=== PATIENT | female | born 1990 | race Caucasian/White ===

== ENCOUNTER 2016-11-07 23:32 | Emergency (ER) | payer MEDICAID ==
--- NOTE | 2016-11-08 00:24 | EDM.PDOC ---
ED HPI GENERAL MEDICAL PROBLEM - General Chief Complaint: Respiratory Problem Stated Complaint: RIGHT AND LEFT SIDE RIB PAIN Time Seen by Provider: 11/08/16 00:13 Source of Information: Reports: Patient History Limitations: Reports: No Limitations - History of Present Illness INITIAL COMMENTS - FREE TEXT/NARRATIVE: This patient complains of a nonproductive cough for several days. She said she coughs so much that her ribs hurt. The cough is nonproductive. Her coughing is caused her to have a little bit of a scratchy throat. She thought she saw some white spots on the back of her throat. She denies a fever. Her was in the ER this morning with bronchitis symptoms also. 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: Musculoskeletal History: Reports: Back Pain, Chronic Endocrine/Metabolic History: Reports: Obesity/BMI 30+ - Infectious Disease History Infectious Disease History: Reports: None Social & Family History - Family History Cardiac: Reports: [place] - Tobacco Use Smoking Status *Q: Former Smoker Years of Tobacco use: 2 Used Tobacco, but Quit: Yes Month Tobacco Last Used: August Second Hand Smoke Exposure: No - Caffeine Use Caffeine Use: Reports: Soda, Tea - Alcohol Use Days Per Week of Alcohol Use: 0 - Recreational Drug Use Recreational Drug Use: No - Living Situation & Occupation Occupation: Unemployed ED ROS GENERAL - Review of Systems Review Of Systems: ROS reveals no pertinent complaints other than HPI. ED EXAM, GENERAL - Physical Exam Exam: See Below Exam Limited By: No Limitations General Appearance: Alert, No Apparent Distress, Obese Eye Exam: Bilateral Eye: Normal Inspection Throat/Mouth: Other (A few small follicles to the posterior pharyngeal wall. Tonsils appear normal) Head: Atraumatic Neck: Normal Inspection Respiratory/Chest: No Respiratory Distress, Lungs Clear Cardiovascular: Regular Rate, Rhythm Neurological: Alert Skin Exam: Warm, Dry Course - Vital Signs Last Recorded V/S: Last Vital Signs Temp 37.0 C 11/07/16 23:58 Pulse 87 11/07/16 23:58 Resp 18 11/07/16 23:58 BP 144/91 H 11/07/16 23:58 Pulse Ox 95 11/07/16 23:58 Departure - Departure Time of Disposition: 00:23 Disposition: Home, Self-Care 01 Condition: Fair Clinical Impression: Bronchitis - Discharge Information Referrals: Jelena Espinoza PA [Primary Care Provider] - Additional Instructions: Prescriptions: Guaifenesin/codeine elixir 120 mL. Take 10 mL every 4-6 hours as needed for cough. This medication can cause sedation and impair driving. See your Dr. if no better in 3 or 4 days. Typically with a viral upper respiratory infection your cough may actually last for weeks
[2016-11-08 01:42] VITALS: BP 144/91
== END 2016-11-08 00:38 | disposition home or self-care (01) ==
LOC: JP.ED 23:32
DX: J40 Bronchitis, not specified as acute or chronic (principal); K21.9 Gastro-esophageal reflux disease without esophagitis; E66.9 Obesity, unspecified; Z87.891 Personal history of nicotine dependence; Z79.899 Other long term (current) drug therapy
CPT/HCPCS: 99283

== ENCOUNTER 2017-03-13 13:41 | Emergency (ER) | payer MEDICAID ==
[2017-03-13 13:55] VITALS: BP 138/87
--- NOTE | 2017-03-13 14:08 | EDM.PDOC ---
ED HPI GENERAL MEDICAL PROBLEM - General Chief Complaint: ENT Problem Stated Complaint: R EAR BLOCKAGE Time Seen by Provider: 03/13/17 13:50 Source of Information: Reports: Patient History Limitations: Reports: No Limitations - History of Present Illness INITIAL COMMENTS - FREE TEXT/NARRATIVE: 26-year-old female that has had a pressure and hearing loss off and on all morning. No significant pain, no recent cold symptoms. Denies nausea or vomiting. No shortness of breath or cough. 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: Musculoskeletal History: Reports: Back Pain, Chronic Endocrine/Metabolic History: Reports: Obesity/BMI 30+ - Infectious Disease History Infectious Disease History: Reports: None Social & Family History - Family History Cardiac: Reports: [place] - Tobacco Use Smoking Status *Q: Never Smoker Years of Tobacco use: 2 Used Tobacco, but Quit: Yes Month Tobacco Last Used: August Second Hand Smoke Exposure: No - Caffeine Use Caffeine Use: Reports: Soda, Tea - Alcohol Use Days Per Week of Alcohol Use: 0 - Recreational Drug Use Recreational Drug Use: No - Living Situation & Occupation Occupation: Unemployed ED ROS ENT - Review of Systems Review Of Systems: See Below Constitutional: Denies: Fever, Chills Respiratory: Denies: Shortness of Breath, Cough Cardiovascular: Denies: Chest Pain GI/Abdominal: Reports: No Symptoms ED EXAM, ENT - Physical Exam Exam: See Below Exam Limited By: No Limitations General Appearance: Alert, No Apparent Distress Ears: Normal TMs Nose: Normal Inspection Mouth/Throat: Normal Inspection Respiratory/Chest: No Respiratory Distress, Lungs Clear Course - Vital Signs Last Recorded V/S: Last Vital Signs Temp 97.9 F 03/13/17 13:54 Pulse 92 03/13/17 13:54 Resp 14 03/13/17 13:54 BP 138/87 03/13/17 13:54 Pulse Ox 98 03/13/17 13:54 - Re-Assessments/Exams Free Text/Narrative Re-Assessment/Exam: 03/13/17 14:06 Patient has eustachian tube dysfunction. She'll be placed on 60 mg of prednisone daily for the next 2-5 days, and continues Afrin nasal spray on the right side. She'll recheck in 2-3 days if not improving satisfactorily. Departure - Departure Time of Disposition: 14:12 Disposition: Home, Self-Care 01 Condition: Good Clinical Impression: Eustachian tube dysfunction Qualifiers: Laterality: right Qualified Code(s): H69.81 - Other specified disorders of Eustachian tube, right ear - Discharge Information Instructions: Barotitis Media Referrals: Jelena Espinoza PA [Primary Care Provider] - Forms: ED Department Discharge Care Plan Goals: Take 6 pills of prednisone daily with food all at the same time, with your first meal for the next 2-5 days. You can also try Afrin or Babak-Synephrine nasal spray in the right side of your nose for the next few days. Recheck in 2- 3 days if not improving satisfactorily.
== END 2017-03-13 14:13 | disposition home or self-care (01) ==
LOC: JP.ED 13:41
DX: H69.81 Other specified disorders of Eustachian tube, right ear (principal); K21.9 Gastro-esophageal reflux disease without esophagitis
CPT/HCPCS: 99283

== ENCOUNTER 2017-04-19 10:00 | Emergency (ER) | payer MEDICAID ==
[2017-04-19 10:15] VITALS: BP 116/80
--- NOTE | 2017-04-19 10:34 | EDM.PDOC ---
ED HPI GENERAL MEDICAL PROBLEM - General Chief Complaint: Respiratory Problem Stated Complaint: SOB; COUGH Time Seen by Provider: 04/19/17 10:10 Source of Information: Reports: Patient History Limitations: Reports: No Limitations - History of Present Illness INITIAL COMMENTS - FREE TEXT/NARRATIVE: 26-year-old female developed a fever yesterday and a cough, today she hurts all over, has some nasal congestion and a deep cough that hurts when she coughs. Her fever has "broke". She also has a scratchy throat. No nausea or vomiting. 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: Musculoskeletal History: Reports: Back Pain, Chronic Endocrine/Metabolic History: Reports: Obesity/BMI 30+ - Infectious Disease History Infectious Disease History: Reports: None Social & Family History - Family History Cardiac: Reports: [place] - Tobacco Use Smoking Status *Q: Never Smoker Years of Tobacco use: 2 Used Tobacco, but Quit: Yes Month Tobacco Last Used: August Second Hand Smoke Exposure: No - Caffeine Use Caffeine Use: Reports: Soda - Alcohol Use Days Per Week of Alcohol Use: 0 - Recreational Drug Use Recreational Drug Use: No - Living Situation & Occupation Occupation: Unemployed ED ROS GENERAL - Review of Systems Review Of Systems: See Below Constitutional: Reports: Fever, Chills, Malaise. Denies: Weakness HEENT: Reports: Rhinitis, Throat Pain Respiratory: Reports: Shortness of Breath, Pleuritic Chest Pain, Cough. Denies : Sputum Cardiovascular: Denies: Palpitations GI/Abdominal: Denies: Abdominal Pain, Nausea, Vomiting Skin: Reports: No Symptoms Neurological: Reports: Headache ED EXAM, GENERAL - Physical Exam Exam: See Below Exam Limited By: No Limitations General Appearance: Alert, No Apparent Distress Eye Exam: Bilateral Eye: Normal Inspection Ears: Normal TMs Throat/Mouth: Normal Oropharynx Head: Atraumatic Respiratory/Chest: No Respiratory Distress, Lungs Clear Neurological: Alert, Oriented Psychiatric: Normal Affect, Normal Mood Skin Exam: Warm, Dry Course - Vital Signs Last Recorded V/S: Last Vital Signs Temp 98.7 F 04/19/17 10:19 Pulse 98 04/19/17 10:19 Resp 18 04/19/17 10:19 BP 116/80 04/19/17 10:19 Pulse Ox 98 04/19/17 10:19 - Re-Assessments/Exams Free Text/Narrative Re-Assessment/Exam: 04/19/17 10:34 Influenza antigens were obtained. 04/19/17 10:52 Influenza antigens were negative. Patient was given albuterol inhaler as she does tend to get reactive airways with viral colds. She was also given Tessalon Perles for cough suppression. Encouraged to rest, get fluids and increase activity as tolerated. Departure - Departure Time of Disposition: 11:02 Disposition: Home, Self-Care 01 Condition: Good Clinical Impression: Viral URI with cough, Viral bronchitis - Discharge Information Instructions: Acute Bronchitis, Adult, [id number] Referrals: Jelena Espinoza PA [Primary Care Provider] - Forms: ED Department Discharge Care Plan Goals: Use inhaler for wheezing as needed, cough suppression medication as prescribed. Rest and fluids are important and return if worsening such as difficulty breathing.
== END 2017-04-19 11:02 | disposition home or self-care (01) ==
LOC: JP.ED 10:00
DX: J20.8 Acute bronchitis due to other specified organisms (principal); J06.9 Acute upper respiratory infection, unspecified; K21.9 Gastro-esophageal reflux disease without esophagitis; E66.9 Obesity, unspecified; Z79.899 Other long term (current) drug therapy
CPT/HCPCS: 87804; 99283; 99284

== ENCOUNTER 2017-07-28 20:29 | Emergency (ER) | payer MEDICAID ==
[2017-07-28 20:44] VITALS: BP 134/69
[2017-07-28] MEDS ORDERED: Ketorolac 60 MG/2 ML SDV IM ONE (21:10)
--- NOTE | 2017-07-28 21:14 | EDM.PDOC ---
ED HPI GENERAL MEDICAL PROBLEM - General Chief Complaint: Back Pain or Injury Stated Complaint: RIGHT PAIN, LOWER BACK PAIN Time Seen by Provider: 07/28/17 20:37 Source of Information: Reports: Patient History Limitations: Reports: No Limitations - History of Present Illness INITIAL COMMENTS - FREE TEXT/NARRATIVE: low back pain, radiates to right leg. reports has been like that for years, but tonight having worsen pain, just can't stand it anymore. has appointment with Primary Care Provider Dr. Kitty Espinoza on August 10, 2017 Employed at [employer] , she is standing all day. back is worse after a shift. Onset: Today Duration: Hour(s): Quality: Reports: Sharp, Throbbing Severity: Severe Improves with: Reports: Rest Worsens with: Reports: Movement Associated Symptoms: Reports: No Other Symptoms Treatments LIFE SCIENTIST: Reports: Acetaminophen, NSAIDS Right Hip Pain Score (Numeric/FACES): 7 - Related Data Allergies Allergy/AdvReac Type Severity Reaction Status Date / Time No Known Allergies Allergy Verified 11/07/16 23:51 Home Meds: Home Meds Omeprazole 20 mg PO DAILY 01/22/16 [History] Past Medical History - Past Health History Medical/Surgical History: Denies Medical/Surgical History HEENT History: Reports: Impaired Vision 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: 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: Musculoskeletal History: Reports: Back Pain, Chronic Endocrine/Metabolic History: Reports: Obesity/BMI 30+ - Infectious Disease History Infectious Disease History: Reports: None Social & Family History - Family History Cardiac: Reports: [place] - Tobacco Use Smoking Status *Q: Never Smoker - Caffeine Use Caffeine Use: Reports: Soda - Recreational Drug Use Recreational Drug Use: No - Living Situation & Occupation Occupation: Employed (now working at [employer]) ED ROS GENERAL - Review of Systems Review Of Systems: See Below Constitutional: Reports: No Symptoms HEENT: Reports: No Symptoms Respiratory: Reports: No Symptoms Cardiovascular: Reports: No Symptoms Endocrine: Reports: No Symptoms GI/Abdominal: Reports: No Symptoms : Reports: No Symptoms Musculoskeletal: Reports: Back Pain, Leg Pain (right), Muscle Pain Skin: Reports: No Symptoms Neurological: Reports: No Symptoms Psychiatric: Reports: No Symptoms Hematologic/Lymphatic: Reports: No Symptoms Immunologic: Reports: No Symptoms ED EXAM, GENERAL - Physical Exam Exam: See Below General Appearance: Alert, WD/WN, No Apparent Distress, Obese Head: Atraumatic, Normocephalic Neck: Normal Inspection, Supple, Non-Tender, Full Range of Motion Respiratory/Chest: No Respiratory Distress, Lungs Clear, Normal Breath Sounds, No Accessory Muscle Use Cardiovascular: Regular Rate, Rhythm, No Edema, No Murmur Back Exam: Normal Inspection, Full Range of Motion, Muscle Spasm (right sciatica. sacral spine area.) Neurological: Alert, Oriented, CN II-XII Intact, Normal Cognition, Normal Gait, Normal Reflexes, No Motor/Sensory Deficits Psychiatric: Normal Affect, Normal Mood Skin Exam: Warm, Dry, Intact, Normal Color, No Rash Lymphatic: No Adenopathy Course - Vital Signs Last Recorded V/S: Last Vital Signs Temp 37.2 C 07/28/17 20:46 Pulse 84 07/28/17 20:46 Resp 16 07/28/17 20:46 BP 134/69 07/28/17 20:46 Pulse Ox 96 07/28/17 20:46 - Orders/Labs/Meds Meds: Medications Discontinued Medications Generic Name Dose Route Start Last Admin Trade Name Jaime PRN Reason Stop Dose Admin Ketorolac Tromethamine 60 mg 07/28/17 21:10 Toradol IM 07/28/17 21:11 ONETIME ONE Departure - Departure Time of Disposition: 21:29 Disposition: Home, Self-Care 01 Condition: Good Clinical Impression: Sciatica of right side without back pain - Discharge Information Instructions: Sciatica Rehab-SportsMed Referrals: PCP,None [Primary Care Provider] - Forms: ED Department Discharge Care Plan Goals: Sciatica -Toradol 60mg IM -Flexeril 10mg eveyr 8 hours as needed for muscle spasms -Hydrocodone 5-325mg one every 4 to 6 hours as needed for pain -Naproxen 500mg one every 12 hours. do not take Motrin. Alieve or other NSAID while taking Naproxen advised no work x 3 days advised no bending, lifting or twisting for the next 3 days Follow up with Primary Care for recheck - Problem List & Annotations (1) Sciatica of right side without back pain SNOMED Code(s): 15575198 Code(s): M54.31 - SCIATICA, RIGHT SIDE Status: Acute Priority: High Current Visit: Yes - Problem List Review Problem List Initiated/Reviewed/Updated: Yes - Assessment/Plan Plan: Sciatica -Toradol 60mg IM -Flexeril 10mg eveyr 8 hours as needed for muscle spasms -Hydrocodone 5-325mg one every 4 to 6 hours as needed for pain -Naproxen 500mg one every 12 hours. do not take Motrin. Alieve or other NSAID while taking Naproxen advised no work x 3 days advised no bending, lifting or twisting for the next 3 days Follow up with Primary Care for recheck
== END 2017-07-28 21:54 | disposition home or self-care (01) ==
LOC: JP.ED 20:29
DX: M54.31 Sciatica, right side (principal); K21.9 Gastro-esophageal reflux disease without esophagitis; Z79.899 Other long term (current) drug therapy
CPT/HCPCS: 96372; 99284; J1885

== ENCOUNTER 2018-03-19 13:49 | Emergency (ER) | payer MEDICAID ==
[2018-03-19 14:28] VITALS: BP 136/81
--- NOTE | 2018-03-19 16:35 | EDM.PDOC ---
ED HPI GENERAL MEDICAL PROBLEM - General Chief Complaint: Abdominal Pain Stated Complaint: ADB PAIN Time Seen by Provider: 03/19/18 15:38 Source of Information: Reports: Patient - History of Present Illness INITIAL COMMENTS - FREE TEXT/NARRATIVE: 27 yo presents with concerns of abdominal pain. Reports history of similar pain in the past. Seems to associated with menses. Started noticing lower abdominal pain 2-3 days ago. Associated with start of her menses. Reports an achy pain throughout the lower abdomen that radiates upwards. Has been associated with nonbloody diarrhea. No nausea or vomiting. No fevers. No vaginal discharge or pain. 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: Musculoskeletal History: Reports: Back Pain, Chronic Psychiatric History: Reports: Anxiety, Panic Attack Endocrine/Metabolic History: Reports: Obesity/BMI 30+ - Infectious Disease History Infectious Disease History: Reports: None Social & Family History - Family History Family Medical History: Noncontributory Cardiac: Reports: [place] - Tobacco Use Smoking Status *Q: Never Smoker Second Hand Smoke Exposure: Yes - Caffeine Use Caffeine Use: Reports: Soda - Recreational Drug Use Recreational Drug Use: No - Living Situation & Occupation Occupation: Employed (now working at [employer]) ED ROS GENERAL - Review of Systems Review Of Systems: See Below Constitutional: Reports: No Symptoms HEENT: Reports: No Symptoms Respiratory: Reports: No Symptoms Cardiovascular: Reports: No Symptoms Endocrine: Reports: No Symptoms GI/Abdominal: Reports: Abdominal Pain, Diarrhea : Reports: No Symptoms Musculoskeletal: Reports: No Symptoms Skin: Reports: No Symptoms Neurological: Reports: No Symptoms Psychiatric: Reports: No Symptoms Hematologic/Lymphatic: Reports: No Symptoms Immunologic: Reports: No Symptoms ED EXAM, GI/ABD - Physical Exam Exam: See Below General Appearance: Alert, No Apparent Distress Ears: Normal External Exam Nose: Normal Inspection Throat/Mouth: Normal Inspection Head: Atraumatic, Normocephalic Neck: Normal Inspection GI/Abdominal Exam: Normal Bowel Sounds, Soft, Non-Tender Back Exam: Normal Inspection Extremities: Normal Inspection Neurological: Alert, Oriented Psychiatric: Normal Affect Course - Vital Signs Last Recorded V/S: Last Vital Signs Temp 36.3 C 03/19/18 14:40 Pulse 73 03/19/18 14:40 Resp 16 03/19/18 14:40 BP 136/81 03/19/18 14:40 Pulse Ox 97 03/19/18 14:40 - Orders/Labs/Meds Labs: Laboratory Tests 03/19/18 03/19/18 03/19/18 Range/Units 15:34 15:34 16:08 WBC 11.0 (4.5-11.0) K/uL RBC 4.55 (3.30-5.50) M/uL Hgb 12.9 (12.0-15.0) g/dL Hct 41.1 (36.0-48.0) % MCV 90 (80-98) fL MCH 28 (27-31) pg MCHC 31 L (32-36) % Plt Count 234 (150-400) K/uL Sodium (140-148) mmol/L Potassium (3.6-5.2) mmol/L Chloride (100-108) mmol/L Carbon Dioxide (21-32) mmol/L Anion Gap (5.0-14.0) mmol/L BUN (7-18) mg/dL Creatinine (0.6-1.0) mg/dL Est Cr Clr Drug Dosing mL/min Estimated GFR (MDRD) (>60) Glucose (74-106) mg/dL Calcium (8.5-10.1) mg/dL Total Bilirubin (0.2-1.0) mg/dL AST (15-37) U/L ALT (12-78) U/L Alkaline Phosphatase (46-116) U/L Total Protein (6.4-8.2) g/dL Albumin (3.4-5.0) g/dL Globulin (2.3-3.5) g/dL Albumin/Globulin Ratio (1.2-2.2) Urine Color [place] Urine Appearance Cloudy Urine pH 5.0 (4.5-8.0) Ur Specific [place] 1.020 (1.008-1.030) Urine Protein Negative (NEGATIVE) mg/dL Urine Glucose (UA) Negative (NEGATIVE) mg/dL Urine Ketones 15 H (NEGATIVE) mg/dL Urine Occult Blood Large (NEGATIVE) Urine Nitrite Negative (NEGATIVE) Urine Bilirubin Negative (NEGATIVE) Urine Urobilinogen Normal (NORMAL) mg/dL Ur Leukocyte Esterase Negative (NEGATIVE) Urine RBC Packed H (0-5) Urine WBC 5-10 H (0-5) Ur Epithelial Cells Few Amorphous Sediment Few Urine Bacteria Rare Urine Mucus Few Urine HCG, Qual Negative 03/19/18 Range/Units 16:08 WBC (4.5-11.0) K/uL RBC (3.30-5.50) M/uL Hgb (12.0-15.0) g/dL Hct (36.0-48.0) % MCV (80-98) fL MCH (27-31) pg MCHC (32-36) % Plt Count (150-400) K/uL Sodium 141 (140-148) mmol/L Potassium 3.9 (3.6-5.2) mmol/L Chloride 105 (100-108) mmol/L Carbon Dioxide 25 (21-32) mmol/L Anion Gap 10.7 (5.0-14.0) mmol/L BUN 9 (7-18) mg/dL Creatinine 0.7 (0.6-1.0) mg/dL Est Cr Clr Drug Dosing 104.24 mL/min Estimated GFR (MDRD) > 60 (>60) Glucose 88 (74-106) mg/dL Calcium 8.9 (8.5-10.1) mg/dL Total Bilirubin 0.3 (0.2-1.0) mg/dL AST 17 (15-37) U/L ALT 26 (12-78) U/L Alkaline Phosphatase 88 (46-116) U/L Total Protein 7.5 (6.4-8.2) g/dL Albumin 3.2 L (3.4-5.0) g/dL Globulin 4.3 H (2.3-3.5) g/dL Albumin/Globulin Ratio 0.7 L (1.2-2.2) Urine Color Urine Appearance Urine pH (4.5-8.0) Ur Specific [place] (1.008-1.030) Urine Protein (NEGATIVE) mg/dL Urine Glucose (UA) (NEGATIVE) mg/dL Urine Ketones (NEGATIVE) mg/dL Urine Occult Blood (NEGATIVE) Urine Nitrite (NEGATIVE) Urine Bilirubin (NEGATIVE) Urine Urobilinogen (NORMAL) mg/dL Ur Leukocyte Esterase (NEGATIVE) Urine RBC (0-5) Urine WBC (0-5) Ur Epithelial Cells Amorphous Sediment Urine Bacteria Urine Mucus Urine HCG, Qual - Re-Assessments/Exams Free Text/Narrative Re-Assessment/Exam: 27-year-old morbidly obese female presents to concerns of lower and upper abdominal pain. On exam noted to have normal vital signs and benign abdomen. Has history of similar presentations in the past. She is admittedly a hypochondriac. My suspicion for acute surgical abdominal disease is low. Not consistent with an ovarian pathology such as torsion. We agreed to workup for concerns with screening labs are unremarkable. She remained with a stable abdominal exam and vitals during a period of observation in the ED. She is safe for discharge with symptomatic measures, return for worsening. 03/19/18 19:07 Departure - Departure Time of Disposition: 17:00 Disposition: Home, Self-Care 01 Clinical Impression: Abdominal pain Qualifiers: Abdominal location: generalized Qualified Code(s): R10.84 - Generalized abdominal pain - Discharge Information *PRESCRIPTION DRUG MONITORING PROGRAM REVIEWED*: No *COPY OF PRESCRIPTION DRUG MONITORING REPORT IN PATIENT TAVO: No Instructions: Abdominal Pain, Adult, [id number] Referrals: Jelena Espinoza PA [Primary Care Provider] - Forms: ED Department Discharge Additional Instructions: As discussed with your physician; your labs are normal and if you are comfortable, advises clear liquids for the next 12 hours then advance diet as tolerated. please seek medical care for high fever or worsening abdominal pain.
== END 2018-03-19 17:09 | disposition home or self-care (01) ==
LOC: JP.ED 13:49
DX: R10.84 Generalized abdominal pain (principal); Z79.899 Other long term (current) drug therapy; Z77.22 Contact with and (suspected) exposure to environmental tobacco smoke (acute) (chronic)
CPT/HCPCS: 36415; 80053; 81001; 81025; 85027; 99282; 99284

== ENCOUNTER 2018-03-26 09:14 | Emergency (ER) | payer MEDICAID ==
[2018-03-26 09:30] VITALS: BP 133/88
--- NOTE | 2018-03-26 09:48 | EDM.PDOC ---
ED HPI GENERAL MEDICAL PROBLEM - General Chief Complaint: ENT Problem Stated Complaint: POSSIBLE STREP Time Seen by Provider: 03/26/18 09:42 Source of Information: Reports: Patient History Limitations: Reports: No Limitations - History of Present Illness INITIAL COMMENTS - FREE TEXT/NARRATIVE: 27-year-old female with a sore throat, cough, nasal congestion for the past week but the throat is getting worse and she is concerned she may have strep throat. No fevers or chills, no shortness of breath. She was exposed to influenza by a coworker as well. Denies nausea or vomiting. Onset: Gradual Duration: Day(s): (7 days) Associated Symptoms: Reports: Cough, Malaise, Other (Sore throat, nasal congestion). 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: Musculoskeletal History: Reports: Back Pain, Chronic Psychiatric History: Reports: Anxiety, Panic Attack Endocrine/Metabolic History: Reports: Obesity/BMI 30+ - Infectious Disease History Infectious Disease History: Reports: None Social & Family History - Family History Family Medical History: Noncontributory Cardiac: Reports: [place] - Tobacco Use Smoking Status *Q: Never Smoker - Caffeine Use Caffeine Use: Reports: Soda - Living Situation & Occupation Occupation: Employed (now working at [employer]) ED ROS ENT - Review of Systems Review Of Systems: See Below Constitutional: Denies: Fever HEENT: Reports: Rhinitis, Throat Pain. Denies: Ear Pain Respiratory: Reports: Cough. Denies: Shortness of Breath Cardiovascular: Denies: Chest Pain GI/Abdominal: Denies: Nausea, Vomiting Skin: Reports: No Symptoms Neurological: Denies: Headache ED EXAM, ENT - Physical Exam Exam: See Below Exam Limited By: No Limitations General Appearance: Alert, No Apparent Distress Ears: Normal TMs Nose: Normal Inspection Mouth/Throat: Normal Inspection Respiratory/Chest: No Respiratory Distress, Lungs Clear Neurological: Alert, Oriented Skin: Warm, Dry Course - Vital Signs Last Recorded V/S: Last Vital Signs Temp 96.2 F 03/26/18 09:35 Pulse 80 03/26/18 09:35 Resp 16 03/26/18 09:35 BP 133/88 03/26/18 09:35 Pulse Ox 97 03/26/18 09:35 - Orders/Labs/Meds Orders: Active Orders 24 hr Category Date Time Status CULTURE STREP A CONFIRMATION [RM] Routine Lab 03/26/18 09:46 Results STREP SCRN A RAPID W CULT CONF [RM] Routine Lab 03/26/18 09:46 Results - Re-Assessments/Exams Free Text/Narrative Re-Assessment/Exam: 03/26/18 10:19 Rapid strep was obtained and it was negative. Patient is a viral URI and pharyngitis. This will resolve spontaneously with time. Departure - Departure Time of Disposition: 10:37 Disposition: Home, Self-Care 01 Condition: Good Clinical Impression: Viral URI - Discharge Information Instructions: Viral Respiratory Infection, [id number] Referrals: Jelena Espinoza PA [Primary Care Provider] - Forms: ED Department Discharge Care Plan Goals: Rest, fluids, throat lozenges and ibuprofen would be beneficial. Increase activity as tolerated and recheck in 2-3 days if not improving satisfactorily. - My Orders Last 24 Hours: My Active Orders 03/26/18 09:46 CULTURE STREP A CONFIRMATION [RM] Routine STREP SCRN A RAPID W CULT CONF [] Routine - Assessment/Plan Last 24 Hours: My Active Orders 03/26/18 09:46 CULTURE STREP A CONFIRMATION [RM] Routine STREP SCRN A RAPID W CULT CONF [] Routine
== END 2018-03-26 10:38 | disposition home or self-care (01) ==
LOC: JP.ED 09:14
DX: J06.9 Acute upper respiratory infection, unspecified (principal)
CPT/HCPCS: 87081; 87430; 99283

== ENCOUNTER 2018-08-08 23:49 | Emergency (ER) | payer MEDICAID ==
[2018-08-09 00:46] VITALS: BP 144/81
[2018-08-09] MEDS ORDERED: Ketorolac 60 MG/2 ML SDV IM ONE (01:37)
--- NOTE | 2018-08-09 01:46 | EDM.PDOC ---
ED HPI GENERAL MEDICAL PROBLEM - General Chief Complaint: Headache Stated Complaint: HEADACHE Time Seen by Provider: 08/09/18 00:01 Source of Information: Reports: Patient, Family (Delia) History Limitations: Reports: No Limitations - History of Present Illness INITIAL COMMENTS - FREE TEXT/NARRATIVE: Dental Pain: this is a 27 year old female presents to ER for dental pain. She reports has "bad" teeth, has appointment pending on August 22, 2018 for dental care. Today she reports throbbing pain in her molars that extends to her temples. denies any fever or chills. also concerns she might be . 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: Reports: Other (see below) Other Treatments CHIEF JUVENILE PROBATION OFFICER: unknown Frontal Headache Pain Score (Numeric/FACES): 3 - Related Data Allergies Allergy/AdvReac Type Severity Reaction Status Date / Time No Known Allergies Allergy Verified 08/09/18 01:05 Home Meds: Home Meds NK [No Known Home Meds] 03/26/18 [History] Ergocalciferol (Vitamin D2) [Vitamin D2] 1 tab PO ASDIRECTED 08/09/18 [History] Omeprazole 10 mg PO DAILY 08/09/18 [History] Past Medical History - Past Health History Medical/Surgical History: Denies Medical/Surgical History HEENT History: Reports: Impaired Vision 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: GERD 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: Musculoskeletal History: Reports: Back Pain, Chronic, Fracture Psychiatric History: Reports: Anxiety, Panic Attack Endocrine/Metabolic History: Reports: Obesity/BMI 30+ - Infectious Disease History Infectious Disease History: Reports: None Social & Family History - Family History Family Medical History: Noncontributory Cardiac: Reports: [place] - Tobacco Use Smoking Status *Q: Light Tobacco Smoker Years of Tobacco use: 1 Packs/Tins Daily: 0.1 - Caffeine Use Caffeine Use: Reports: Soda - Recreational Drug Use Recreational Drug Use: No - Living Situation & Occupation Occupation: Employed (now working at [employer]) ED ROS ENT - Review of Systems Review Of Systems: See Below Constitutional: Reports: Other (dental pain) HEENT: Reports: Dental Pain Respiratory: Reports: No Symptoms Cardiovascular: Reports: No Symptoms Endocrine: Reports: No Symptoms GI/Abdominal: Reports: No Symptoms : Reports: No Symptoms Musculoskeletal: Reports: No Symptoms Skin: Reports: No Symptoms Neurological: Reports: Headache (secondary to dental pain) Psychiatric: Reports: No Symptoms Hematologic/Lymphatic: Reports: No Symptoms Immunologic: Reports: No Symptoms ED EXAM, ENT - Physical Exam Exam: See Below Exam Limited By: No Limitations General Appearance: Alert, WD/WN, Mild Distress, Obese (wearing her PJ, wearing dark glasses over her regular glasses.) Eye Exam: Bilateral Eye: EOMI, Normal Inspection, PERRL Ears: Normal External Exam, Normal Canal, Hearing Grossly Normal, Normal TMs Nose: Normal Inspection Mouth/Throat: Normal Lips, Normal Oropharynx, Dental Pain (upper and lower molars with cavities, remaining teeth in good repair. no other cavities noted.) , Dental Tenderness Head: Atraumatic, Normocephalic Neck: Normal Inspection, Supple, Non-Tender, Full Range of Motion Respiratory/Chest: No Respiratory Distress, Lungs Clear, Normal Breath Sounds, No Accessory Muscle Use, Chest Non-Tender Cardiovascular: Regular Rate, Rhythm, No Murmur GI/Abdominal: Soft, Non-Tender Extremities: Normal Range of Motion (moving all arms and legs equal) Neurological: No Motor/Sensory Deficits Psychiatric: Normal Affect, Normal Mood Skin: Warm, Dry, Intact, Normal Color, No Rash Lymphatic: No Adenopathy Course - Vital Signs Last Recorded V/S: Last Vital Signs Temp 36.8 C 08/09/18 00:59 Pulse 91 08/09/18 00:59 Resp 16 08/09/18 00:59 BP 144/81 H 08/09/18 00:59 Pulse Ox 97 08/09/18 00:59 - Orders/Labs/Meds Orders: urine test is negative. advise to follow up in Primary Care if does not have return of menses. Labs: Laboratory Tests 08/09/18 08/09/18 Range/Units 00:55 00:55 Urine Color Yellow Urine Appearance Slightly cloudy Urine pH 6.0 (4.5-8.0) Ur Specific [place] 1.020 (1.008-1.030) Urine Protein Negative (NEGATIVE) mg/dL Urine Glucose (UA) Normal (NEGATIVE) mg/dL Urine Ketones 15 H (NEGATIVE) mg/dL Urine Occult Blood Moderate (NEGATIVE) Urine Nitrite Negative (NEGATIVE) Urine Bilirubin Negative (NEGATIVE) Urine Urobilinogen Normal (NORMAL) mg/dL Ur Leukocyte Esterase Moderate (NEGATIVE) Urine RBC 0-5 (0-5) Urine WBC 5-10 H (0-5) Ur Epithelial Cells Moderate Amorphous Sediment Not seen Urine Bacteria Few Urine Mucus Not seen Urine HCG, Qual Negative Meds: Medications Discontinued Medications Generic Name Dose Route Start Last Admin Trade Name Jaime PRN Reason Stop Dose Admin Ketorolac Tromethamine 60 mg 08/09/18 01:37 08/09/18 01:51 Toradol IM 08/09/18 01:38 Not Given ONETIME ONE - Re-Assessments/Exams Free Text/Narrative Re-Assessment/Exam: given Toradol 60mg IM for pain control Departure - Departure Time of Disposition: 01:41 Disposition: Home, Self-Care 01 Condition: Good Clinical Impression: Pain due to dental caries - Discharge Information *PRESCRIPTION DRUG MONITORING PROGRAM REVIEWED*: No *COPY OF PRESCRIPTION DRUG MONITORING REPORT IN PATIENT TAVO: No Instructions: Pain Medicine Instructions Referrals: Jelena Espinoza PA [Primary Care Provider] - Forms: ED Department Discharge Care Plan Goals: Dental Pain -Penicillin 500mg take one tablet 4 times a day for 10 days #40 -Hydrocodone 5-325mg one every 4 to 6 hours as needed for severe pain #4 -Motrin 600mg one every 6 to 8 hours as needed for pain #30 -soft diet -follow up in Dental Clinic on August 22, 2018 Return to ER or Dental Clinic if not improved or symptoms worsen. - Problem List & Annotations (1) Pain due to dental caries SNOMED Code(s): 52000142, 19856907 Code(s): K02.9 - DENTAL CARIES, UNSPECIFIED Status: Acute Priority: High (2) test negative SNOMED Code(s): 557846186 Code(s): Z32.02 - ENCOUNTER FOR TEST, RESULT NEGATIVE Status: Acute Priority: Low - Problem List Review Problem List Initiated/Reviewed/Updated: Yes - Assessment/Plan Plan: Dental Pain -Penicillin 500mg take one tablet 4 times a day for 10 days #40 -Hydrocodone 5-325mg one every 4 to 6 hours as needed for severe pain #4 -Motrin 600mg one every 6 to 8 hours as needed for pain #30 -soft diet -follow up in Dental Clinic on August 22, 2018 Return to ER or Dental Clinic if not improved or symptoms worsen.
== END 2018-08-09 01:55 | disposition home or self-care (01) ==
LOC: JP.ED 23:49
DX: K02.9 Dental caries, unspecified (principal); F17.210 Nicotine dependence, cigarettes, uncomplicated; K21.9 Gastro-esophageal reflux disease without esophagitis; Z79.899 Other long term (current) drug therapy
CPT/HCPCS: 81001; 81025; 99283

== ENCOUNTER 2018-12-24 12:03 | Emergency (ER) | payer MEDICAID ==
[2018-12-24 12:30] VITALS: BP 130/81; PULSE 92
--- NOTE | 2018-12-24 12:45 | EDM.PDOC ---
ED HPI GENERAL MEDICAL PROBLEM - General Chief Complaint: Genitourinary Problem Stated Complaint: UTI Time Seen by Provider: 12/24/18 12:04 Source of Information: Reports: Patient History Limitations: Reports: No Limitations - History of Present Illness INITIAL COMMENTS - FREE TEXT/NARRATIVE: Sussy is a 28 year old female, presents to the ED with a 3 day hx of vaginal itching, urinary frequency and burning, denies any flank pain, fever, nausea or vomiting. Patient had leftover Augmentin she has been taking since symptoms started which she reports has helped her symptoms some. 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: Musculoskeletal History: Reports: Back Pain, Chronic, Fracture Psychiatric History: Reports: Anxiety, Panic Attack Endocrine/Metabolic History: Reports: Obesity/BMI 30+ - Infectious Disease History Infectious Disease History: Reports: None Social & Family History - Family History Family Medical History: Noncontributory Cardiac: Reports: [place] - Tobacco Use Smoking Status *Q: Current Some Day Smoker Years of Tobacco use: 10 Packs/Tins Daily: 0.1 - Caffeine Use Caffeine Use: Reports: Soda - Living Situation & Occupation Occupation: Employed (now working at [employer]) ED ROS GENERAL - Review of Systems Review Of Systems: ROS reveals no pertinent complaints other than HPI. ED EXAM, RENAL/ - Physical Exam Exam: See Below Exam Limited By: No Limitations General Appearance: Alert, WD/WN, No Apparent Distress Throat/Mouth: Normal Inspection Head: Atraumatic Neck: Normal Inspection, Supple Respiratory/Chest: No Respiratory Distress, Lungs Clear GI/Abdominal: Normal Bowel Sounds, Soft, Non-Tender (Female) Exam: Normal External Exam, Normal Speculum Exam, Other (With RN at bedside, after obtaining patient verbal consent). No: Vaginal Discharge Back Exam: Normal Inspection Extremities: Normal Inspection Neurological: Alert, Oriented Psychiatric: Normal Affect, Normal Mood Skin Exam: Warm, Dry, Intact Lymphatic: No Adenopathy Course - Vital Signs Last Recorded V/S: Last Vital Signs Temp 36.4 C 12/24/18 12:29 Pulse 92 12/24/18 12:29 Resp 14 12/24/18 12:29 BP 130/81 12/24/18 12:29 Pulse Ox 98 12/24/18 12:29 Sussy is a 28 year old female, presents to the ED today with c/o 3 day hx of UTI symptoms and vaginal itching. Please refer to HPI and focused exam. Patient did verbally consent to pelvic exam and wet prep obtained secondary to the vaginal itching. UA with mild UTI negative , likely Augmentin having some therapeutic benefit. Wet prep with many yeast and clue cells, will start on Macrobid for UTI, Diflucan for yeast and Flagyl and BV given symptomatology. Patient has never inserted a tampon so reluctant to treat with Metrogel or vaginal cream. Patient can follow up with PCP as needed. Reasons to return to the ED discussed, patient agreeable and discharged in stable condition. - Orders/Labs/Meds Orders: Active Orders 24 hr Category Date Time Status CULTURE URINE [RM] Stat Lab 12/24/18 12:31 Received Labs: Laboratory Tests 12/24/18 12/24/18 Range/Units 12:19 12:19 Urine Color Yellow (YELLOW) Urine Appearance Clear (CLEAR) Urine pH 7.5 (5.0-8.0) Ur Specific [place] 1.020 (1.008-1.030) Urine Protein Negative (NEGATIVE) mg/dL Urine Glucose (UA) Negative (NEGATIVE) mg/dL Urine Ketones Negative (NEGATIVE) mg/dL Urine Occult Blood Trace-lysed H (NEGATIVE) Urine Nitrite Negative (NEGATIVE) Urine Bilirubin Negative (NEGATIVE) Urine Urobilinogen 0.2 (0.2-1.0) EU/dL Ur Leukocyte Esterase Small H (NEGATIVE) Urine RBC 0-5 (0-5) Urine WBC 5-10 H (0-5) Ur Epithelial Cells Many Amorphous Sediment Many Urine Bacteria Not seen Urine Mucus Not seen Urine HCG, Qual Negative Departure - Departure Time of Disposition: 14:00 Disposition: Home, Self-Care 01 Condition: Good Clinical Impression: UTI, Urinary tract infectious disease, Yeast infection, Bacterial vaginosis, test negative - Discharge Information Instructions: Urinary Tract Infection, Adult, Vaginal Yeast Infection, Adult, Bacterial Vaginosis Referrals: Jelena Espinoza PA [Primary Care Provider] - Forms: ED Department Discharge Additional Instructions: Start all medications today and take as directed. Stop the Augmentin. Drink plenty of water, if your symptoms persist follow up with primary care clinic next week. Return here with any worsening symptoms. - My Orders Last 24 Hours: My Active Orders 12/24/18 12:31 CULTURE URINE [RM] Stat - Assessment/Plan Last 24 Hours: My Active Orders 12/24/18 12:31 CULTURE URINE [RM] Stat
[2018-12-24] MEDS ORDERED: metroNIDAZOLE 250 MG Tab PO ONE (13:13)
[2018-12-24] MEDS ORDERED: Nitrofurantoin Monohydrate/Macrocrystalline 100 MG Cap PO ONE (13:14)
[2018-12-24] MEDS ORDERED: Phenazopyridine 95 MG Tab PO ONE (13:14)
== END 2018-12-24 13:56 | disposition home or self-care (01) ==
LOC: JP.ED 12:03
DX: N39.0 Urinary tract infection, site not specified (principal); B37.9 Candidiasis, unspecified; N76.0 Acute vaginitis; B96.89 Other specified bacterial agents as the cause of diseases classified elsewhere; E66.9 Obesity, unspecified; F17.210 Nicotine dependence, cigarettes, uncomplicated; Z68.43 Body mass index [BMI] 50.0-59.9, adult; Z32.02 Encounter for pregnancy test, result negative
CPT/HCPCS: 81001; 81025; 87086; 87210; 99283; A9270; 87088

== ENCOUNTER 2019-01-12 19:50 | Emergency (ER) | payer MEDICAID ==
--- NOTE | 2019-01-12 20:36 | EDM.PDOC ---
ED HPI GENERAL MEDICAL PROBLEM - General Chief Complaint: Abdominal Pain Stated Complaint: LEFT SIDE ABD PAIN Time Seen by Provider: 01/12/19 20:26 Source of Information: Reports: Patient History Limitations: Reports: No Limitations - History of Present Illness INITIAL COMMENTS - FREE TEXT/NARRATIVE: Patient presents describing sudden onset severe left sided abdominal pain and dark urine beginning at 1600 hrs. today. She's never had anything like this before. The pain was left lower quadrant and left flank in location. It did not radiate anywhere. There is no right sided similar pain. Some nausea but no vomiting. There is no position of comfort. She did not take anything for pain prior to arrival. Her last period was early November. Before that, she had periods monthly. She is not certain if she could be or not but states that she was seen here a month or so ago and a test at that time was negative. She rates her pain 10/10 at this time. Onset: Today, Sudden Duration: Hour(s): (3) Location: Reports: Abdomen Quality: Reports: Sharp, Stabbing Severity: Severe Improves with: Reports: None Worsens with: Reports: None Associated Symptoms: Reports: Nausea/Vomiting Left Lower Abdomen Pain Score (Numeric/FACES): 10 - Related Data Allergies Allergy/AdvReac Type Severity Reaction Status Date / Time No Known Allergies Allergy Verified 01/12/19 20:03 Home Meds: Home Meds NK [No Known Home Meds] 03/26/18 [History] Past Medical History - Past Health History Medical/Surgical History: Denies Medical/Surgical History HEENT History: Reports: Impaired Vision 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: GERD [employer]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: Musculoskeletal History: Reports: Back Pain, Chronic, Fracture Psychiatric History: Reports: Anxiety, Panic Attack Endocrine/Metabolic History: Reports: Obesity/BMI 30+ - Infectious Disease History Infectious Disease History: Reports: None Social & Family History - Family History Family Medical History: Noncontributory Cardiac: Reports: [place] - Tobacco Use Smoking Status *Q: Current Every Day Smoker Years of Tobacco use: 2 Packs/Tins Daily: 2 Used Tobacco, but Quit: No Second Hand Smoke Exposure: Yes - Caffeine Use Caffeine Use: Reports: Energy Drinks, Soda - Recreational Drug Use Recreational Drug Use: No - Living Situation & Occupation Occupation: Employed (now working at [employer]) ED ROS GENERAL - Review of Systems Review Of Systems: See Below Constitutional: Reports: No Symptoms Respiratory: Reports: No Symptoms Cardiovascular: Reports: No Symptoms GI/Abdominal: Reports: Abdominal Pain (Left flank pain.) : Reports: Flank Pain, Hematuria, Other (Dark urine.). Denies: Dysuria Musculoskeletal: Reports: No Symptoms ED EXAM, GI/ABD - Physical Exam Exam: See Below Exam Limited By: No Limitations General Appearance: Severe Distress Respiratory/Chest: No Respiratory Distress Cardiovascular: Regular Rate, Rhythm GI/Abdominal Exam: Normal Bowel Sounds, Soft, Tender (Diffuse left flank and left lower quadrant tenderness on palpation) Back Exam: CVA Tenderness (L) Course - Vital Signs Last Recorded V/S: Last Vital Signs Temp 36.2 C 01/12/19 22:37 Pulse 64 01/12/19 22:37 Resp 16 01/12/19 22:37 BP 138/87 01/12/19 22:37 Pulse Ox 91 L 01/12/19 22:37 - Orders/Labs/Meds Orders: Active Orders 24 hr Category Date Time Status Sodium Chloride 0.9% [Normal Saline] 1,000 ml Med 01/12/19 20:45 Ordered IV ASDIRECTED Sodium Chloride 0.9% [Saline Flush] Med 01/12/19 20:38 Ordered 10 ml FLUSH ASDIRECTED PRN Saline Lock Insert [OM.PC] Routine Oth 01/12/19 20:38 Ordered Medication Orders Sodium Chloride (Normal Saline) 1,000 mls @ 250 mls/hr IV ASDIRECTED POOJA Last Admin: 01/12/19 21:04 Dose: 250 mls/hr Sodium Chloride (Saline Flush) 10 ml FLUSH ASDIRECTED PRN PRN Reason: Keep Vein Open Last Admin: 01/12/19 20:56 Dose: 10 ml Labs: Laboratory Tests 01/12/19 01/12/19 01/12/19 Range/Units 20:17 20:37 20:37 WBC 15.8 H (4.5-11.0) K/uL RBC 4.57 (3.30-5.50) M/uL Hgb 13.3 (12.0-15.0) g/dL Hct 41.8 (36.0-48.0) % MCV 92 (80-98) fL MCH 29 (27-31) pg MCHC 32 (32-36) % Plt Count 233 (150-400) K/uL Neut % (Auto) 72 H (36-66) % Lymph % (Auto) 21 L (24-44) % [place] % (Auto) 6 (2-6) % Eos % (Auto) 1 L (2-4) % Baso % (Auto) 0 (0-1) % Sodium 140 (140-148) mmol/L Potassium 3.9 (3.6-5.2) mmol/L Chloride 106 (100-108) mmol/L Carbon Dioxide 23 (21-32) mmol/L Anion Gap 11.1 (5.0-14.0) mmol/L BUN 9 (7-18) mg/dL Creatinine 0.8 (0.6-1.0) mg/dL Est Cr Clr Drug Dosing 86.60 mL/min Estimated GFR (MDRD) > 60 (>60) Glucose 100 (74-106) mg/dL Calcium 8.8 (8.5-10.1) mg/dL Total Bilirubin 0.2 (0.2-1.0) mg/dL AST 21 (15-37) U/L ALT 41 (12-78) U/L Alkaline Phosphatase 97 (46-116) U/L Total Protein 7.4 (6.4-8.2) g/dL Albumin 3.4 (3.4-5.0) g/dL Globulin 4.0 H (2.3-3.5) g/dL Albumin/Globulin Ratio 0.9 L (1.2-2.2) HCG, Qual Urine Color Brown A (YELLOW) Urine Appearance Cloudy A (CLEAR) Urine pH 5.5 (5.0-8.0) Ur Specific [place] >= 1.030 (1.008-1.030) Urine Protein 100 H (NEGATIVE) mg/dL Urine Glucose (UA) Negative (NEGATIVE) mg/dL Urine Ketones Negative (NEGATIVE) mg/dL Urine Occult Blood Large H (NEGATIVE) Urine Nitrite Negative (NEGATIVE) Urine Bilirubin Small H (NEGATIVE) Urine Urobilinogen 0.2 (0.2-1.0) EU/dL Ur Leukocyte Esterase Negative (NEGATIVE) Urine RBC Semi-packed H (0-5) Urine WBC 0-5 (0-5) Ur Epithelial Cells Few Amorphous Sediment Not seen Urine Bacteria Many Urine Mucus Few Urine Other 01/12/19 Range/Units 20:37 WBC (4.5-11.0) K/uL RBC (3.30-5.50) M/uL Hgb (12.0-15.0) g/dL Hct (36.0-48.0) % MCV (80-98) fL MCH (27-31) pg MCHC (32-36) % Plt Count (150-400) K/uL Neut % (Auto) (36-66) % Lymph % (Auto) (24-44) % Cameron % (Auto) (2-6) % Eos % (Auto) (2-4) % Baso % (Auto) (0-1) % Sodium (140-148) mmol/L Potassium (3.6-5.2) mmol/L Chloride (100-108) mmol/L Carbon Dioxide (21-32) mmol/L Anion Gap (5.0-14.0) mmol/L BUN (7-18) mg/dL Creatinine (0.6-1.0) mg/dL Est Cr Clr Drug Dosing mL/min Estimated GFR (MDRD) (>60) Glucose (74-106) mg/dL Calcium (8.5-10.1) mg/dL Total Bilirubin (0.2-1.0) mg/dL AST (15-37) U/L ALT (12-78) U/L Alkaline Phosphatase (46-116) U/L Total Protein (6.4-8.2) g/dL Albumin (3.4-5.0) g/dL Globulin (2.3-3.5) g/dL Albumin/Globulin Ratio (1.2-2.2) HCG, Qual Negative Urine Color (YELLOW) Urine Appearance (CLEAR) Urine pH (5.0-8.0) Ur Specific [place] (1.008-1.030) Urine Protein (NEGATIVE) mg/dL Urine Glucose (UA) (NEGATIVE) mg/dL Urine Ketones (NEGATIVE) mg/dL Urine Occult Blood (NEGATIVE) Urine Nitrite (NEGATIVE) Urine Bilirubin (NEGATIVE) Urine Urobilinogen (0.2-1.0) EU/dL Ur Leukocyte Esterase (NEGATIVE) Urine RBC (0-5) Urine WBC (0-5) Ur Epithelial Cells Amorphous Sediment Urine Bacteria Urine Mucus Urine Other Meds: Medications Generic Name Dose Route Start Last Admin Trade Name Freq PRN Reason Stop Dose Admin Sodium Chloride 1,000 mls @ 250 mls/hr 01/12/19 20:45 01/12/19 21:04 Normal Saline IV 250 mls/hr ASDIRECTED POOJA Administration Sodium Chloride 10 ml 01/12/19 20:38 01/12/19 20:56 Saline Flush FLUSH 10 ml ASDIRECTED PRN Administration Keep Vein Open Discontinued Medications Generic Name Dose Route Start Last Admin Trade Name Jaime PRN Reason Stop Dose Admin Hydromorphone HCl 1 mg 01/12/19 20:39 01/12/19 20:59 Dilaudid IVPUSH 01/12/19 20:40 1 mg ONETIME ONE Administration Hydromorphone HCl 1 mg 01/12/19 22:05 Dilaudid IVPUSH 01/12/19 22:06 ONETIME ONE Ketorolac Tromethamine 30 mg 01/12/19 22:05 01/12/19 22:14 Toradol IVPUSH 01/12/19 22:06 30 mg ONETIME ONE Administration Ondansetron HCl 4 mg 01/12/19 20:39 01/12/19 20:55 Zofran IVPUSH 01/12/19 20:40 4 mg ONETIME ONE Administration Tamsulosin HCl 0.4 mg 01/12/19 23:20 Flomax PO 01/12/19 23:21 ONETIME ONE - Re-Assessments/Exams Free Text/Narrative Re-Assessment/Exam: 01/12/19 20:42 Patient will be given normal saline at 250 mL per hour along with hydromorphone 1 mg and ondansetron 4 mg as IV doses. If , she could have an ectopic that is ruptured. Kidney stones are also a possibility. 01/12/19 22:16 I returned later to review current symptoms and test results. She has left- sided pain still, stating that the hydromorphone helped her pain for only a brief period. She no longer is nauseated. She is lying on her left side. Her test is negative and her WBCs are almost 16,000. The urine is packed with red blood cells. This is likely a kidney stone and the patient states that she previously was diagnosed with a kidney stone. We'll obtain a stone protocol CT. She'll be given an additional hydromorphone 1 mg as well as ketorolac 30 mg , both IV doses. 01/12/19 23:25 I returned later to review CT results which show a 1-2 mm stone in the left ureteral pelvis with some mild ductal dilatation. Her urine had numerous red blood cells but only a couple white cells and she would not need antibiotics. I reviewed biology of kidney stones with her. She states that with her previous stone, she was admitted to the hospital although at the time she had also just delivered a baby too. She should drink adequate liquids. She has ibuprofen 800 mg at home and I recommend she use that 3 times daily until stone passes. Strain all urine. Take tamsulosin the next 7 days. Use oxycodone 5/325 mg as prescribed for stronger pain. Given the size of the stone, hopefully it will pass quickly. Reasons to return to emergency Department reviewed. Departure - Departure Time of Disposition: 23:21 Disposition: Home, Self-Care 01 Condition: Good Clinical Impression: Calculus in pelviureteric junction, Colic, ureteral - Discharge Information *PRESCRIPTION DRUG MONITORING PROGRAM REVIEWED*: No *COPY OF PRESCRIPTION DRUG MONITORING REPORT IN PATIENT TAVO: No Instructions: Kidney Stones, [id number] Referrals: Jelena Espinoza PA [Primary Care Provider] - Forms: ED Department Discharge Additional Instructions: Drink adequate fluids. Strain all urine and watch for tiny lynne in the strainer which would indicate passage of the stone. Take ibuprofen 800 mg 3 times a day regularly until the stone passes. Use tamsulosin daily for the next week even after he passed the stone. For additional pain relief, she may use oxycodone tablets as prescribed. Given the small size of the stone, hopefully it will pass into the bladder quickly! Return to emergency Department if feeling worse and pain is not well managed at home however usually a stone of this size passes quite readily in the home environment. - My Orders Last 24 Hours: My Active Orders 01/12/19 20:38 Sodium Chloride 0.9% [Saline Flush] 10 ml FLUSH ASDIRECTED PRN Saline Lock Insert [OM.PC] Routine 01/12/19 20:45 Sodium Chloride 0.9% [Normal Saline] 1,000 ml IV ASDIRECTED - Assessment/Plan Last 24 Hours: My Active Orders 01/12/19 20:38 Sodium Chloride 0.9% [Saline Flush] 10 ml FLUSH ASDIRECTED PRN Saline Lock Insert [OM.PC] Routine 01/12/19 20:45 Sodium Chloride 0.9% [Normal Saline] 1,000 ml IV ASDIRECTED
[2019-01-12] MEDS ORDERED: Sodium Chloride 0.9% 10 ML Syringe FLUSH PRN (20:38)
[2019-01-12] MEDS ORDERED: Ondansetron 4 MG/2 ML SDV IVPUSH ONE (20:39)
[2019-01-12] MEDS ORDERED: HYDROmorphone 1 MG/ML Syringe IVPUSH ONE ×2 (20:39→22:05)
[2019-01-12] MEDS ORDERED: Sodium Chloride 0.9% 1,000 ML IV SCH (20:45)
[2019-01-12] MEDS ORDERED: Ketorolac 30 MG/ML SDV IVPUSH ONE (22:05)
[2019-01-12 22:37] VITALS: BP 138/87; PULSE 64
--- NOTE | 2019-01-12 22:59 | CRLCT ---
INDICATION: Left flank pain, hematuria TECHNIQUE: CT Abdomen and pelvis without i.v. contrast. Coronal and sagittal reformats were obtained. COMPARISON: None FINDINGS: Lower chest: Unremarkable. Liver: Unremarkable. Spleen: Unremarkable. Pancreas: Unremarkable. Gallbladder: Unremarkable. Kidney: There is a 1-2 mm stone present in the left ureteropelvic junction causing mild left renal pelviectasis. Less than 1 mm stone is seen in the upper pole of the left kidney. The right kidney is unremarkable in appearance. Adrenal: Unremarkable. Bowel: Unremarkable. The appendix is not identified. Vascular: Unremarkable. Lymph: Unremarkable. Peritoneum: Unremarkable. No pneumoperitoneum is seen. No significant ascites is noted. Pelvis: Unremarkable. Soft tissue: Unremarkable. Bone: Unremarkable for age. IMPRESSION: 1. There is a 1-2 mm stone present in the left ureteropelvic junction causing mild left renal pelviectasis. Dictated by Alexander Marmolejo MD @ 01/12/2019 10:58:14 PM Please note that all CT scans at this facility use dose modulation, iterative reconstruction, and/or weight-based dosing when appropriate to reduce radiation dose to as low as reasonably achievable. Dictated by: Alexander Marmolejo MD @ 01/12/2019 22:58:19 (Electronically Signed)
[2019-01-12] MEDS ORDERED: Tamsulosin 0.4 MG Cap.ER PO ONE (23:20)
== END 2019-01-12 23:40 | disposition home or self-care (01) ==
LOC: JP.ED 19:50
DX: N20.2 Calculus of kidney with calculus of ureter (principal); E66.9 Obesity, unspecified; F17.210 Nicotine dependence, cigarettes, uncomplicated; Z68.44 Body mass index [BMI] 60.0-69.9, adult
CPT/HCPCS: 36415; 74176; 80053; 81001; 84703; 85025; 96361; 96374; 96375; 99284; A9270; J1170; J1885; J2405; J7030

== ENCOUNTER 2019-01-14 00:32 | Emergency (ER) | payer MEDICAID ==
[2019-01-14 00:53] VITALS: BP 139/89; PULSE 71
[2019-01-14] MEDS ORDERED: Ondansetron 4 MG Tab.DIS PO ONE (00:56)
[2019-01-14] MEDS ORDERED: Acetaminophen/HYDROcodone 325-5 MG Tab PO ONE (01:14)
--- NOTE | 2019-01-14 01:14 | EDM.PDOC ---
ED HPI GENERAL MEDICAL PROBLEM - General Chief Complaint: Genitourinary Problem Stated Complaint: MARISSAEY STONE, PAIN, FEELING SICK Time Seen by Provider: 01/14/19 01:00 Source of Information: Reports: Patient, Old Records, RN History Limitations: Reports: No Limitations - History of Present Illness INITIAL COMMENTS - FREE TEXT/NARRATIVE: 28 yo female seen here just over 24 hrs ago for a kidney stone returns with incomplete pain relief and nausea due to the oxycodone. Has tolerated hydrocodone in the past, but this is the first time she has had oxycodone. No fever. No actual vomiting. Is taking ibuprofen 800 mg without adequate relief alone and isn't taking the oxycodone due to the nausea it is causing her. Onset: Sudden Onset Date: 01/12/19 Duration: Day(s): (1+), Waxing/Waning Location: Reports: Back (flank) Quality: Reports: Ache Severity: Moderate (after ibuprofen, severe without it.) Improves with: Reports: Medication Worsens with: Reports: Other (meds wearing off) Context: Reports: Other (see HPI) Associated Symptoms: Reports: Nausea/Vomiting. 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 Left Lower Abdomen Pain Score (Numeric/FACES): 4 - Related Data Allergies Allergy/AdvReac Type Severity Reaction Status Date / Time No Known Allergies Allergy Verified 01/14/19 00:41 Home Meds: Home Meds Tamsulosin HCl [Flomax] 0.4 mg PO DAILY 01/14/19 [History] oxyCODONE 5 mg PO Q6H PRN 01/14/19 [History] Past Medical History - Past Health History Medical/Surgical History: Denies Medical/Surgical History HEENT History: Reports: Impaired Vision 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: GERD Genitourinary History: Reports: Other (See Below) 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 History: known kidney stone [employer]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: Musculoskeletal History: Reports: Back Pain, Chronic, Fracture Psychiatric History: Reports: Anxiety, Panic Attack Endocrine/Metabolic History: Reports: Obesity/BMI 30+ - Infectious Disease History Infectious Disease History: Reports: None Social & Family History - Family History Family Medical History: Noncontributory Cardiac: Reports: [place] - Tobacco Use Smoking Status *Q: Current Every Day Smoker Years of Tobacco use: 2 Packs/Tins Daily: 0.2 Used Tobacco, but Quit: No Second Hand Smoke Exposure: Yes - Caffeine Use Caffeine Use: Reports: Coffee - Recreational Drug Use Recreational Drug Use: No - Living Situation & Occupation Occupation: Employed (now working at [employer]) ED ROS GENERAL - Review of Systems Review Of Systems: See Below Constitutional: Reports: No Symptoms HEENT: Reports: No Symptoms Respiratory: Reports: No Symptoms Cardiovascular: Reports: No Symptoms GI/Abdominal: Reports: Nausea. Denies: Constipation, Diarrhea : Reports: Flank Pain, Hematuria (at times), Urgency. Denies: Dysuria Skin: Reports: No Symptoms Neurological: Reports: No Symptoms ED EXAM, RENAL/ - Physical Exam Exam: See Below Exam Limited By: No Limitations General Appearance: Alert, WD/WN, No Apparent Distress, Obese Nose: Normal Inspection Throat/Mouth: Normal Inspection Head: Atraumatic, Normocephalic Neck: Normal Inspection Respiratory/Chest: No Respiratory Distress, No Accessory Muscle Use Cardiovascular: Regular Rate, Rhythm Back Exam: Normal Inspection Extremities: Normal Inspection Neurological: Alert, Oriented, CN II-XII Intact, Normal Cognition, No Motor/ Sensory Deficits Psychiatric: Normal Affect, Normal Mood Skin Exam: Warm, Dry, Intact, Normal Color, No Rash Course - Vital Signs Last Recorded V/S: Last Vital Signs Temp 36.2 C 01/14/19 00:52 Pulse 71 01/14/19 00:52 Resp 16 01/14/19 00:52 BP 139/89 01/14/19 00:52 Pulse Ox 97 01/14/19 00:52 - Orders/Labs/Meds Labs: Laboratory Tests 01/14/19 Range/Units 01:02 Urine Color Yellow (YELLOW) Urine Appearance Cloudy A (CLEAR) Urine pH 6.0 (5.0-8.0) Ur Specific [place] >= 1.030 (1.008-1.030) Urine Protein Negative (NEGATIVE) mg/dL Urine Glucose (UA) Negative (NEGATIVE) mg/dL Urine Ketones Negative (NEGATIVE) mg/dL Urine Occult Blood Moderate H (NEGATIVE) Urine Nitrite Negative (NEGATIVE) Urine Bilirubin Negative (NEGATIVE) Urine Urobilinogen 0.2 (0.2-1.0) EU/dL Ur Leukocyte Esterase Small H (NEGATIVE) Urine RBC >100 H (0-5) Urine WBC 5-10 H (0-5) Ur Epithelial Cells Moderate Amorphous Sediment Not seen Urine Bacteria Moderate Urine Mucus Not seen Meds: Medications Discontinued Medications Generic Name Dose Route Start Last Admin Trade Name Jaime PRN Reason Stop Dose Admin Hydrocodone Bitart/Acetaminophen 1 tab 01/14/19 01:14 [place] 325-5 Mg PO 01/14/19 01:15 ONETIME ONE Ondansetron HCl 4 mg 01/14/19 00:56 01/14/19 01:00 Zofran Odt PO 01/14/19 00:57 4 mg ONETIME ONE Administration Departure - Departure Time of Disposition: 01:25 Disposition: Home, Self-Care 01 Condition: Fair Clinical Impression: Narcotic-induced nausea and vomiting - Discharge Information *PRESCRIPTION DRUG MONITORING PROGRAM REVIEWED*: No *COPY OF PRESCRIPTION DRUG MONITORING REPORT IN PATIENT TAVO: No Referrals: Jelena Espinoza PA [Primary Care Provider] - Forms: ED Department Discharge Additional Instructions: Substitute hydrocodone for the oxycodone for pain relief. Take Zofran every 6 hrs for nausea control. Drink enough fluids so your urine is light yellow in color. Continue ibuprofen, but take no more than 3200 mg in any 24 hr period. Strain your urine to catch your stone. F/U with your doctor in the clinic by the end of the week.
== END 2019-01-14 01:33 | disposition home or self-care (01) ==
LOC: JP.ED 00:32
DX: R11.2 Nausea with vomiting, unspecified (principal); T40.2X5A Adverse effect of other opioids, initial encounter; T40.605A Adverse effect of unspecified narcotics, initial encounter; K21.9 Gastro-esophageal reflux disease without esophagitis; F17.210 Nicotine dependence, cigarettes, uncomplicated; Z79.899 Other long term (current) drug therapy; E66.9 Obesity, unspecified
CPT/HCPCS: 81001; 99284; A9270; 99283

== ENCOUNTER 2019-01-14 06:18 | Emergency (ER) | payer MEDICAID ==
--- NOTE | 2019-01-14 07:24 | EDM.PDOC ---
ED HPI GENERAL MEDICAL PROBLEM - General Chief Complaint: Gastrointestinal Problem Stated Complaint: PAIN, VOMITING Time Seen by Provider: 01/14/19 07:24 Source of Information: Reports: Patient History Limitations: Reports: No Limitations - History of Present Illness INITIAL COMMENTS - FREE TEXT/NARRATIVE: pt was seen on Tuesday and she was found to have a 2 mm stone just outside of the bladder on the left. She was sent home with percocet and she was not able to tolerate that. She returned yesterday and was gioven hydrocodone and she returned vomiting today. Onset: Gradual Duration: Hour(s): Location: Reports: Abdomen, Other (pt has severe left flank pain. ) Associated Symptoms: Reports: Nausea/Vomiting, Weakness Left Lower Abdomen Pain Score (Numeric/FACES): 10 - Related Data Allergies Allergy/AdvReac Type Severity Reaction Status Date / Time No Known Allergies Allergy Verified 01/14/19 06:23 Home Meds: Home Meds Hydrocodone/Acetaminophen [Hydrocodon-Acetaminophen 5-325] 1 each PO Q4H [History] Ondansetron [Zofran ODT] 4 mg PO Q6H PRN 01/14/19 [History] Tamsulosin HCl [Flomax] 0.4 mg PO DAILY 01/14/19 [History] Past Medical History - Past Health History Medical/Surgical History: Denies Medical/Surgical History HEENT History: Reports: Impaired Vision 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: GERD Genitourinary History: Reports: Renal Calculus, Other (See Below) 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 History: known kidney stone 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: Musculoskeletal History: Reports: Back Pain, Chronic, Fracture Psychiatric History: Reports: Anxiety, Panic Attack Endocrine/Metabolic History: Reports: Obesity/BMI 30+ - Infectious Disease History Infectious Disease History: Reports: None Social & Family History - Family History Family Medical History: Noncontributory Cardiac: Reports: [place] - Tobacco Use Smoking Status *Q: Current Every Day Smoker Years of Tobacco use: 2 Packs/Tins Daily: 0.2 - Caffeine Use Caffeine Use: Reports: Coffee - Recreational Drug Use Recreational Drug Use: No - Living Situation & Occupation Occupation: Employed (now working at [employer]) ED ROS GENERAL - Review of Systems Review Of Systems: See Below Constitutional: Reports: No Symptoms HEENT: Reports: No Symptoms Respiratory: Reports: No Symptoms Cardiovascular: Reports: No Symptoms Endocrine: Reports: No Symptoms GI/Abdominal: Reports: Abdominal Pain, Other (pt is having severe left flank pain) : Reports: Other (pt has a known left sided kidney stone. ) Musculoskeletal: Reports: No Symptoms Skin: Reports: No Symptoms Neurological: Reports: No Symptoms ED EXAM, GI/ABD - Physical Exam Exam: See Below Text/Narrative:: pt arrived having severe left flank pain and she has not been able to keep anything down. Exam Limited By: No Limitations General Appearance: Alert, Anxious, Severe Distress Ears: Normal TMs Nose: Normal Inspection Throat/Mouth: Normal Inspection Head: Atraumatic Neck: Normal Inspection Respiratory/Chest: No Respiratory Distress Cardiovascular: Regular Rate, Rhythm GI/Abdominal Exam: Soft, Other (left flank pain. ) (Female) Exam: Deferred Rectal (Female) Exam: Deferred Back Exam: CVA Tenderness (L) Extremities: Normal Inspection Neurological: Alert, Oriented, Normal Cognition Course - Vital Signs Last Recorded V/S: Last Vital Signs Temp 36.2 C 01/14/19 06:35 Pulse 87 01/14/19 07:56 Resp 18 01/14/19 07:56 BP 125/78 01/14/19 07:56 Pulse Ox 97 01/14/19 07:56 - Orders/Labs/Meds Orders: Active Orders 24 hr Category Date Time Status Strain Urine [RC] ASDIRECTED Care 01/14/19 07:22 Active UA W/MICROSCOPIC [URIN] Urgent Lab 01/14/19 10:15 Received Sodium Chloride 0.9% [Normal Saline] 1,000 ml Med 01/14/19 07:30 Active IV ASDIRECTED Sodium Chloride 0.9% [Normal Saline] 1,000 ml Med 01/14/19 07:30 Active IV ASDIRECTED Sodium Chloride 0.9% [Normal Saline] 1,000 ml Med 01/14/19 09:45 Active IV ASDIRECTED Medication Orders Sodium Chloride (Normal Saline) 1,000 mls @ 999 mls/hr IV ASDIRECTED POOJA Last Admin: 01/14/19 07:45 Dose: 999 mls/hr Sodium Chloride (Normal Saline) 1,000 mls @ 999 mls/hr IV ASDIRECTED POOJA Last Admin: 01/14/19 08:46 Dose: 999 mls/hr Sodium Chloride (Normal Saline) 1,000 mls @ 300 mls/hr IV ASDIRECTED POOJA Last Admin: 01/14/19 09:43 Dose: 300 mls/hr Labs: Laboratory Tests 01/14/19 Range/Units 07:21 Sodium 140 (140-148) mmol/L Potassium 3.9 (3.6-5.2) mmol/L Chloride 106 (100-108) mmol/L Carbon Dioxide 24 (21-32) mmol/L Anion Gap 10.0 (5.0-14.0) mmol/L BUN 14 D (7-18) mg/dL Creatinine 1.1 H (0.6-1.0) mg/dL Est Cr Clr Drug Dosing 62.96 mL/min Estimated GFR (MDRD) 59 L (>60) Glucose 92 (74-106) mg/dL Calcium 8.3 L (8.5-10.1) mg/dL Total Bilirubin 0.3 (0.2-1.0) mg/dL AST 20 (15-37) U/L ALT 36 (12-78) U/L Alkaline Phosphatase 85 (46-116) U/L Total Protein 6.6 (6.4-8.2) g/dL Albumin 3.0 L (3.4-5.0) g/dL Globulin 3.6 H (2.3-3.5) g/dL Albumin/Globulin Ratio 0.8 L (1.2-2.2) Meds: Medications Generic Name Dose Route Start Last Admin Trade Name Freq PRN Reason Stop Dose Admin Sodium Chloride 1,000 mls @ 999 mls/hr 01/14/19 07:30 01/14/19 07:45 Normal Saline IV 999 mls/hr ASDIRECTED POOJA Administration Sodium Chloride 1,000 mls @ 999 mls/hr 01/14/19 07:30 01/14/19 08:46 Normal Saline IV 999 mls/hr ASDIRECTED POOJA Administration Sodium Chloride 1,000 mls @ 300 mls/hr 01/14/19 09:45 01/14/19 09:43 Normal Saline IV 300 mls/hr ASDIRECTED POOJA Administration Discontinued Medications Generic Name Dose Route Start Last Admin Trade Name Freq PRN Reason Stop Dose Admin Hydromorphone HCl 0.5 mg 01/14/19 09:31 Dilaudid IVPUSH 01/14/19 09:32 ONETIME ONE Ketorolac Tromethamine 30 mg 01/14/19 07:23 01/14/19 07:50 Toradol IVPUSH 01/14/19 07:24 30 mg ONETIME ONE Administration Lorazepam 0.5 mg 01/14/19 07:19 01/14/19 07:52 Ativan IVPUSH 01/14/19 07:20 0.5 mg ONETIME ONE Administration Prochlorperazine Edisylate 10 mg 01/14/19 07:19 01/14/19 07:46 Compazine IVPUSH 01/14/19 07:20 10 mg ONETIME ONE Administration Tamsulosin HCl 0.4 mg 01/14/19 07:23 01/14/19 07:44 Flomax PO 01/14/19 07:24 0.4 mg ONETIME ONE Administration - Re-Assessments/Exams Free Text/Narrative Re-Assessment/Exam: 01/14/19 10:11 pt had chems that showed dehydration. She was given 2 liters of fluid. She was given compazine 10 mg iv. She has not had further vomiting. 01/14/19 10:12 for pain the pt was given torodol 30 mg and dilaudid >%. Her pain is much better. Departure - Departure Time of Disposition: 10:15 Disposition: Home, Self-Care 01 Condition: Fair Clinical Impression: Dehydration, Ureteral calculus, left - Discharge Information Referrals: Jelena Espinoza PA [Primary Care Provider] - Forms: ED Department Discharge Care Plan Goals: compazine 10 mg use tid today, push fluids, torodol 10 mg qid for pain today. If pain is severe try to use the percocet. appt with Kitty Alvarez. continue flomax. - My Orders Last 24 Hours: My Active Orders 01/14/19 07:22 Strain Urine [RC] ASDIRECTED 01/14/19 07:30 Sodium Chloride 0.9% [Normal Saline] 1,000 ml IV ASDIRECTED Sodium Chloride 0.9% [Normal Saline] 1,000 ml IV ASDIRECTED 01/14/19 09:45 Sodium Chloride 0.9% [Normal Saline] 1,000 ml IV ASDIRECTED 01/14/19 10:15 UA W/MICROSCOPIC [URIN] Urgent - Assessment/Plan Last 24 Hours: My Active Orders 01/14/19 07:22 Strain Urine [RC] ASDIRECTED 01/14/19 07:30 Sodium Chloride 0.9% [Normal Saline] 1,000 ml IV ASDIRECTED Sodium Chloride 0.9% [Normal Saline] 1,000 ml IV ASDIRECTED 01/14/19 09:45 Sodium Chloride 0.9% [Normal Saline] 1,000 ml IV ASDIRECTED 01/14/19 10:15 UA W/MICROSCOPIC [URIN] Urgent
[2019-01-14] MEDS: Tamsulosin 0.4 MG Cap.ER PO ONE (07:44)
[2019-01-14] MEDS: Sodium Chloride 0.9% 1,000 ML IV SCH ×3 (07:45→09:43)
[2019-01-14] MEDS: Prochlorperazine 10 MG/2 ML SDV IVPUSH ONE (07:46)
[2019-01-14] MEDS: Ketorolac 30 MG/ML SDV IVPUSH ONE (07:50)
[2019-01-14] MEDS: LORazepam 2 MG/ML SDV IVPUSH ONE (07:52)
[2019-01-14 07:58] VITALS: BP 125/78; PULSE 87
[2019-01-14] MEDS: HYDROmorphone 0.5 MG/0.5 ML Syringe IVPUSH ONE (10:37)
== END 2019-01-14 10:38 | disposition home or self-care (01) ==
LOC: JP.ED 06:18
DX: N20.1 Calculus of ureter (principal); E86.0 Dehydration; E66.9 Obesity, unspecified; Z68.44 Body mass index [BMI] 60.0-69.9, adult; Z87.442 Personal history of urinary calculi; F17.210 Nicotine dependence, cigarettes, uncomplicated; Z79.899 Other long term (current) drug therapy
CPT/HCPCS: 36415; 80053; 81001; 96361; 96374; 96375; 99284; A9270; J0780; J1885; J2060; J7030

== ENCOUNTER 2019-05-04 02:56 | Emergency (ER) | payer MEDICAID ==
[2019-05-04 03:08] VITALS: BP 121/73; PULSE 69
--- NOTE | 2019-05-04 03:26 | EDM.PDOC ---
ED HPI GENERAL MEDICAL PROBLEM - General Chief Complaint: Respiratory Problem Stated Complaint: LIGHT HEADED Time Seen by Provider: 05/04/19 03:20 Source of Information: Reports: Patient, Old Records, RN History Limitations: Reports: No Limitations - History of Present Illness INITIAL COMMENTS - FREE TEXT/NARRATIVE: 28 yo female smoker presents with coughing and when she lies down some wheezing for about 3 days getting worse. No fever. Cough is occasionally productive of greenish phlegm. Has not been to the clinic for this. Does not have a hx of asthma. Onset: Gradual Onset Date: 05/01/19 Duration: Day(s): (3), Getting Worse Location: Reports: Chest Quality: Reports: Other (no pain) Severity: Mild Improves with: Reports: Other (sitting up) Worsens with: Reports: Other (lying down) Context: Reports: Other (smoker) Associated Symptoms: Reports: Cough, Shortness of Breath (mild). 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: Musculoskeletal History: Reports: Back Pain, Chronic, Fracture Psychiatric History: Reports: Anxiety, Panic Attack Endocrine/Metabolic History: Reports: Obesity/BMI 30+ - Infectious Disease History Infectious Disease History: Reports: None Social & Family History - Family History Family Medical History: Noncontributory Cardiac: Reports: [place] - Tobacco Use Smoking Status *Q: Current Every Day Smoker Years of Tobacco use: 1 Packs/Tins Daily: 0.5 - Caffeine Use Caffeine Use: Reports: Energy Drinks, Soda - Recreational Drug Use Recreational Drug Use: No - Living Situation & Occupation Occupation: Employed (now working at [employer]) ED ROS GENERAL - Review of Systems Review Of Systems: See Below Constitutional: Reports: No Symptoms HEENT: Reports: No Symptoms Respiratory: Reports: Shortness of Breath, Wheezing, Cough, Sputum. Denies: Pleuritic Chest Pain, Hemoptysis Cardiovascular: Reports: No Symptoms GI/Abdominal: Reports: No Symptoms : Reports: No Symptoms Musculoskeletal: Reports: No Symptoms Skin: Reports: No Symptoms Neurological: Reports: No Symptoms Psychiatric: Reports: No Symptoms ED EXAM, GENERAL - Physical Exam Exam: See Below Exam Limited By: No Limitations General Appearance: Alert, WD/WN, No Apparent Distress, Obese (morbid) Eye Exam: Bilateral Eye: Normal Inspection Ears: Normal External Exam, Normal Canal, Hearing Grossly Normal, Normal TMs Ear Exam: Bilateral Ear: Auricle Normal, Canal Normal, TM normal Nose: Normal Inspection, No Blood Throat/Mouth: Normal Inspection, Normal Lips, Normal Oropharynx, Normal Voice, No Airway Compromise Head: Atraumatic, Normocephalic Neck: Normal Inspection Respiratory/Chest: No Respiratory Distress, No Accessory Muscle Use, Wheezing ( faint) Cardiovascular: Regular Rate, Rhythm, No Edema Extremities: Normal Inspection Neurological: Alert, Oriented, CN II-XII Intact, Normal Cognition Psychiatric: Normal Affect, Normal Mood Skin Exam: Warm, Dry, Intact, Normal Color, No Rash Course - Vital Signs Last Recorded V/S: Last Vital Signs Temp 36.1 C 05/04/19 03:08 Pulse 69 05/04/19 03:08 Resp 16 05/04/19 03:08 BP 121/73 05/04/19 03:08 Pulse Ox 98 05/04/19 03:08 Departure - Departure Time of Disposition: 03:24 Disposition: Home, Self-Care 01 Condition: Good Clinical Impression: Bronchospasm - Discharge Information *PRESCRIPTION DRUG MONITORING PROGRAM REVIEWED*: No *COPY OF PRESCRIPTION DRUG MONITORING REPORT IN PATIENT TAVO: No Instructions: Bronchospasm, Adult, [id number] Referrals: Jelena Espinoza PA [Primary Care Provider] - Additional Instructions: Use albuterol as directed for wheezing. Follow up with your provider if not improving. Sepsis Event Note - Evaluation Sepsis Screening Result: No Definite Risk - Focused Exam Vital Signs: Vital Signs Temp Pulse Resp BP Pulse Ox 05/04/19 03:08 36.1 C 69 16 121/73 98 05/04/19 03:07 36.1 C 69 16 121/73 98 Date Exam was Performed: 05/04/19 Time Exam was Performed: 03:20
== END 2019-05-04 03:31 | disposition home or self-care (01) ==
LOC: JP.ED 02:56
DX: J98.01 Acute bronchospasm (principal); E66.9 Obesity, unspecified; Z68.44 Body mass index [BMI] 60.0-69.9, adult; F17.210 Nicotine dependence, cigarettes, uncomplicated
CPT/HCPCS: 99284

== ENCOUNTER 2019-08-24 16:10 | Emergency (ER) | payer MEDICAID | END 2019-08-24 16:44 | disposition left against medical advice (07) | LOC: JP.ED 16:10 | DX: Z53.21 Procedure and treatment not carried out due to patient leaving prior to being seen by health care provider (principal) ==

== ENCOUNTER 2019-09-07 15:08 | Emergency (ER) | payer MEDICAID ==
[2019-09-07 16:46] VITALS: BP 140/86; PULSE 73
--- NOTE | 2019-09-07 16:53 | EDM.PDOC ---
ED HPI GENERAL MEDICAL PROBLEM - General Chief Complaint: General Stated Complaint: HEART PALPITATIONS Time Seen by Provider: 09/07/19 16:14 Source of Information: Reports: Patient History Limitations: Reports: No Limitations - History of Present Illness INITIAL COMMENTS - FREE TEXT/NARRATIVE: 28-year-old female complains of palpitations and anxiety for 3 days. She knows of no triggers. She denies chest pain or shortness of breath. She has no diaphoresis. She denies syncope. She denies fever or chills. She denies . She admits to a history of anxiety and depression. She denies alcohol or tobacco use. She denies marijuana or street drug use. 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: Musculoskeletal History: Reports: Back Pain, Chronic, Fracture Psychiatric History: Reports: Anxiety, Depression, Panic Attack Endocrine/Metabolic History: Reports: Obesity/BMI 30+ - Infectious Disease History Infectious Disease History: Reports: None - Past Surgical History GI Surgical History: Reports: None Female Surgical History: Reports: None Social & Family History - Family History Family Medical History: Noncontributory Cardiac: Reports: [place] - Tobacco Use Smoking Status *Q: Former Smoker Packs/Tins Daily: 0.2 Used Tobacco, but Quit: Yes Month/Year Tobacco Last Used: 08/2019 Second Hand Smoke Exposure: No - Caffeine Use Caffeine Use: Reports: Soda - Recreational Drug Use Recreational Drug Use: No - Living Situation & Occupation Occupation: Employed (now working at [employer]) ED ROS GENERAL - Review of Systems Review Of Systems: See Below Constitutional: Denies: Fever, Chills HEENT: Reports: No Symptoms Respiratory: Denies: Shortness of Breath, Wheezing, Pleuritic Chest Pain Cardiovascular: Denies: Chest Pain Endocrine: Denies: Polydypsia, Polyuria GI/Abdominal: Denies: Nausea, Vomiting : Denies: Dysuria, Urgency Musculoskeletal: Reports: No Symptoms Skin: Reports: No Symptoms Neurological: Reports: No Symptoms Psychiatric: Reports: Anxiety ED EXAM, GENERAL - Physical Exam Exam: See Below Exam Limited By: No Limitations General Appearance: Alert, WD/WN, No Apparent Distress Ears: Normal External Exam, Normal Canal, Normal TMs Nose: Normal Inspection Throat/Mouth: Normal Inspection, Normal Lips, Normal Teeth Head: Normocephalic Neck: Normal Inspection, Supple, Non-Tender Respiratory/Chest: No Respiratory Distress, Lungs Clear, Normal Breath Sounds Cardiovascular: Normal Peripheral Pulses, Regular Rate, Rhythm GI/Abdominal: Normal Bowel Sounds, Soft, Non-Tender Extremities: Normal Inspection, Normal Range of Motion, Non-Tender Neurological: Alert, Oriented, Normal Cognition, Normal Gait Course - Vital Signs Text/Narrative:: Presents to the ED with palpitations. She has no other symptoms. Her examination was unremarkable. Vital signs are stable. Laboratory work shows evidence of a urinary tract infection. ECG showed no acute changes by my interpretation. The patient is being placed on sulfamethoxazole DS 1 twice daily for 7 days. No urine culture was obtained. Patient will drink plenty of fluids. She was given a work excuse for today. She will follow-up with her primary care provider as needed. She agrees with this plan. Last Recorded V/S: Last Vital Signs Temp 36.1 C 09/07/19 16:17 Pulse 73 09/07/19 16:18 Resp 16 09/07/19 16:18 BP 140/86 09/07/19 16:18 Pulse Ox 99 09/07/19 16:18 - Orders/Labs/Meds Orders: Active Orders 24 hr Category Date Time Status EKG Documentation Completion [RC] ASDIRECTED Care 09/07/19 16:55 Active EKG 12 Lead [EK] Routine Ther 09/07/19 16:53 Ordered Labs: Laboratory Tests 09/07/19 09/07/19 09/07/19 Range/Units 16:53 17:19 17:19 Sodium 144 (140-148) mmol/L Potassium 3.8 (3.6-5.2) mmol/L Chloride 107 (100-108) mmol/L Carbon Dioxide 29 (21-32) mmol/L Anion Gap 7.7 (5.0-14.0) mmol/L BUN 10 (7-18) mg/dL Creatinine 0.8 (0.6-1.0) mg/dL Est Cr Clr Drug Dosing 86.60 mL/min Estimated GFR (MDRD) > 60 (>60) Glucose 105 (74-106) mg/dL Calcium 8.6 (8.5-10.1) mg/dL TSH, Ultra Sensitive 0.843 (0.358-3.740) uIU/mL Urine Color Yellow (YELLOW) Urine Appearance Turbid A (CLEAR) Urine pH 7.5 (5.0-8.0) Ur Specific Hines 1.025 (1.008-1.030) Urine Protein Negative (NEGATIVE) mg/dL Urine Glucose (UA) Negative (NEGATIVE) mg/dL Urine Ketones Negative (NEGATIVE) mg/dL Urine Occult Blood Trace-intact H (NEGATIVE) Urine Nitrite Negative (NEGATIVE) Urine Bilirubin Negative (NEGATIVE) Urine Urobilinogen 0.2 (0.2-1.0) EU/dL Ur Leukocyte Esterase Moderate H (NEGATIVE) Urine RBC 0-5 (0-5) Urine WBC 5-10 H (0-5) Ur Epithelial Cells Moderate Amorphous Sediment Many Urine Bacteria Moderate Urine Mucus Not seen Urine HCG, Qual Negative Departure - Departure Time of Disposition: 18:19 Disposition: Home, Self-Care 01 Condition: Good Clinical Impression: Urinary tract infection, UTI, Urinary tract infectious disease - Discharge Information *PRESCRIPTION DRUG MONITORING PROGRAM REVIEWED*: No *COPY OF PRESCRIPTION DRUG MONITORING REPORT IN PATIENT TAVO: No Referrals: Jelena Espinoza PA [Primary Care Provider] - Forms: ED Department Discharge Additional Instructions: Drink plenty of fluids. Take your antibiotic as directed. Follow-up with your primary care provider. Return here as needed. Sepsis Event Note (ED) - Evaluation Sepsis Screening Result: No Definite Risk - Focused Exam Vital Signs: Vital Signs Temp Pulse Resp BP Pulse Ox 09/07/19 16:18 73 16 140/86 99 09/07/19 16:17 36.1 C 70 16 130/80 97 09/07/19 15:53 36.1 C 70 16 130/80 97 - My Orders Last 24 Hours: My Active Orders 09/07/19 16:53 EKG 12 Lead [EK] Routine 09/07/19 16:55 EKG Documentation Completion [RC] ASDIRECTED - Assessment/Plan Last 24 Hours: My Active Orders 09/07/19 16:53 EKG 12 Lead [EK] Routine 09/07/19 16:55 EKG Documentation Completion [RC] ASDIRECTED
== END 2019-09-07 18:30 | disposition home or self-care (01) ==
LOC: JP.ED 15:08
DX: N39.0 Urinary tract infection, site not specified (principal); E66.9 Obesity, unspecified; Z68.43 Body mass index [BMI] 50.0-59.9, adult; Z87.891 Personal history of nicotine dependence
CPT/HCPCS: 36415; 80048; 81001; 81025; 84443; 93005; 99285-25

== ENCOUNTER 2019-11-05 21:35 | Emergency (ER) | payer MEDICAID ==
[2019-11-05 21:53] VITALS: BP 148/91; PULSE 92
[2019-11-05] MEDS ORDERED: Acetaminophen 500 MG Tab PO ONE (22:14)
[2019-11-05] MEDS ORDERED: Bismuth Subsalicylate 262 MG/15 ML Susp 236 ML Bottle PO ONE (22:14)
--- NOTE | 2019-11-05 22:20 | EDM.PDOC ---
ED HPI GENERAL MEDICAL PROBLEM - General Chief Complaint: Genitourinary Problem Stated Complaint: POSSBLE UTI/KINDEY INFECTION Time Seen by Provider: 11/05/19 22:05 Source of Information: Reports: Patient, Old Records, RN History Limitations: Reports: No Limitations - History of Present Illness INITIAL COMMENTS - FREE TEXT/NARRATIVE: 29 yo female presents with a mild upset stomach and loose stools. Just came from a shift at [employer] No fever or bleeding. Has a pHx of UTI's and is concerned she has another. Is off work tomorrow. No self tx prior to arrival. Onset: Today, Gradual Onset Date: 11/05/19 Duration: Hour(s):, Getting Worse Location: Reports: Abdomen Quality: Reports: Ache Severity: Mild Improves with: Reports: None Worsens with: Reports: Other (? time) Context: Reports: Other (See HPI) Associated Symptoms: Reports: Loss of Appetite. 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 PENSION AGENT: Reports: Other (see below) (none) Abdominal Pain Score (Numeric/FACES): 2 - Related Data Allergies Allergy/AdvReac Type Severity Reaction Status Date / Time No Known Allergies Allergy Verified 11/05/19 21:52 Home Meds: Home Meds Albuterol Sulfate [Proair Respiclick] 90 mcg IH ASDIRECTED PRN 11/05/19 [History] Past Medical History - Past Health History Medical/Surgical History: Denies Medical/Surgical History HEENT History: Reports: Impaired Vision 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: GERD Genitourinary History: Reports: Renal Calculus 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 History: known kidney stone [employer] History: Reports: Musculoskeletal History: Reports: Back Pain, Chronic, Fracture Psychiatric History: Reports: Anxiety, Depression, Panic Attack Endocrine/Metabolic History: Reports: Obesity/BMI 30+ Dermatologic History: Reports: Eczema - Infectious Disease History Infectious Disease History: Reports: None - Past Surgical History GI Surgical History: Reports: None Female Surgical History: Reports: None Social & Family History - Family History Family Medical History: Noncontributory Cardiac: Reports: [place] - Tobacco Use Smoking Status *Q: Current Every Day Smoker Years of Tobacco use: 1 Packs/Tins Daily: 0.2 - Caffeine Use Caffeine Use: Reports: Soda - Recreational Drug Use Recreational Drug Use: No - Living Situation & Occupation Occupation: Employed (now working at [employer] ED ROS GENERAL - Review of Systems Review Of Systems: See Below Constitutional: Reports: No Symptoms HEENT: Reports: No Symptoms Respiratory: Reports: No Symptoms Cardiovascular: Reports: No Symptoms Endocrine: Reports: No Symptoms GI/Abdominal: Reports: Abdominal Pain (mild, more upper), Anorexia, Diarrhea. Denies: Black Stool, Bloody Stool, Constipation, Hematemesis, Hematochezia, Melena, Nausea, Vomiting : Reports: No Symptoms Musculoskeletal: Reports: No Symptoms Skin: Reports: No Symptoms ED EXAM, GI/ABD - Physical Exam Exam: See Below Exam Limited By: No Limitations General Appearance: Alert, WD/WN, No Apparent Distress, Obese Eyes: Bilateral: Normal Appearance Ears: Normal External Exam, Normal Canal, Hearing Grossly Normal Nose: Normal Inspection, No Blood Throat/Mouth: Normal Inspection, Normal Lips, Normal Oropharynx, Normal Voice, No Airway Compromise Head: Atraumatic, Normocephalic Neck: Normal Inspection Respiratory/Chest: No Respiratory Distress, Lungs Clear, Normal Breath Sounds, No Accessory Muscle Use Cardiovascular: Regular Rate, Rhythm, No Edema GI/Abdominal Exam: Normal Bowel Sounds, Soft, Non-Tender, No Distention Back Exam: Normal Inspection. No: CVA Tenderness (R), CVA Tenderness (L) Extremities: Normal Inspection, Normal Range of Motion, Non-Tender, No Pedal Edema Neurological: Alert, Oriented, CN II-XII Intact, Normal Cognition, No Motor/Sensory Deficits Psychiatric: Normal Affect, Normal Mood Skin Exam: Warm, Dry, Intact, Normal Color, No Rash Course - Vital Signs Last Recorded V/S: Last Vital Signs Temp 36.8 C 11/05/19 21:55 Pulse 92 11/05/19 21:55 Resp 16 11/05/19 21:55 BP 148/91 H 11/05/19 21:55 Pulse Ox 97 11/05/19 21:55 - Orders/Labs/Meds Orders: Active Orders 24 hr Category Date Time Status CULTURE URINE [RM] Stat Lab 11/05/19 22:35 Ordered Labs: Laboratory Tests 11/05/19 Range/Units 22:16 Urine Color Yellow (YELLOW) Urine Appearance Cloudy A (CLEAR) Urine pH 5.5 (5.0-8.0) Ur Specific Blanco >= 1.030 (1.008-1.030) Urine Protein Negative (NEGATIVE) mg/dL Urine Glucose (UA) Normal (NEGATIVE) mg/dL Urine Ketones Negative (NEGATIVE) mg/dL Urine Occult Blood Small H (NEGATIVE) Urine Nitrite Negative (NEGATIVE) Urine Bilirubin Negative (NEGATIVE) Urine Urobilinogen 0.2 (0.2-1.0) EU/dL Ur Leukocyte Esterase Trace H (NEGATIVE) Urine RBC 5-10 H (0-5) Urine WBC 5-10 H (0-5) Ur Epithelial Cells Many Amorphous Sediment Not seen Urine Bacteria Moderate Urine Mucus Few Meds: Medications Discontinued Medications Generic Name Dose Route Start Last Admin Trade Name Freq PRN Reason Stop Dose Admin Acetaminophen 1,000 mg 11/05/19 22:14 Tylenol Extra Strength PO 11/05/19 22:15 ONETIME ONE Bismuth Subsalicylate 30 ml 11/05/19 22:14 Pepto Bismol PO 11/05/19 22:15 ONETIME ONE Bismuth Subsalicylate 524 mg 11/05/19 22:33 Pepto Bismol PO 11/05/19 22:34 ONETIME ONE Departure - Departure Time of Disposition: 22:40 Disposition: Home, Self-Care 01 Condition: Fair Clinical Impression: Viral intestinal infection - Discharge Information *PRESCRIPTION DRUG MONITORING PROGRAM REVIEWED*: Not Applicable *COPY OF PRESCRIPTION DRUG MONITORING REPORT IN PATIENT TAVO: Not Applicable Referrals: Jelena Espinoza PA [Primary Care Provider] - Forms: ED Department Discharge Additional Instructions: Take acetaminophen 1000 mg every 6 hrs as needed for pain or fever control. Take Peptobismol as needed for diarrhea. Eat a light diet and drink clear liquids. If not improving by Tuesday recheck with your provider. Frequent hand washing to prevent spread. If today's urine culture grows anything you will be contacted. Sepsis Event Note (ED) - Evaluation Sepsis Screening Result: No Definite Risk - Focused Exam Vital Signs: Vital Signs Temp Pulse Resp BP Pulse Ox 11/05/19 21:55 36.8 C 92 16 148/91 H 97 11/05/19 21:51 36.8 C 92 16 148/91 H 97 - My Orders Last 24 Hours: My Active Orders 11/05/19 22:35 CULTURE URINE [RM] Stat - Assessment/Plan Last 24 Hours: My Active Orders 11/05/19 22:35 CULTURE URINE [RM] Stat
[2019-11-05] MEDS ORDERED: Bismuth Subsalicylate 262 MG Tab.Chew PO ONE (22:33)
== END 2019-11-05 22:49 | disposition home or self-care (01) ==
LOC: JP.ED 21:35
DX: A08.4 Viral intestinal infection, unspecified (principal); E66.9 Obesity, unspecified; F17.210 Nicotine dependence, cigarettes, uncomplicated; Z68.43 Body mass index [BMI] 50.0-59.9, adult
CPT/HCPCS: 81001; 87086; 99284; A9270

== ENCOUNTER 2020-01-25 23:30 | Emergency (ER) | payer MEDICAID ==
[2020-01-25 23:40] VITALS: BP 123/60; PULSE 70
[2020-01-25] MEDS ORDERED: Ibuprofen 600 MG Tab PO ONE (23:51)
--- NOTE | 2020-01-25 23:55 | EDM.PDOC ---
ED HPI GENERAL MEDICAL PROBLEM - General Chief Complaint: ENT Problem Stated Complaint: POSSIBLE EAR INFECTION Time Seen by Provider: 01/25/20 23:40 Source of Information: Reports: Patient History Limitations: Reports: No Limitations - History of Present Illness INITIAL COMMENTS - FREE TEXT/NARRATIVE: 29-year-old female with a history of ear infections in the past, presents with right-sided ear pain for the last 7 hours. No fevers or chills, no cold symptoms. Onset: Sudden (Pain started fairly suddenly about 6 hours ago) Quality: Reports: Ache, Pressure Associated Symptoms: Reports: No Other Symptoms Right Ear Pain Score (Numeric/FACES): 8 - Related Data Allergies Allergy/AdvReac Type Severity Reaction Status Date / Time No Known Allergies Allergy Verified 11/05/19 21:52 Home Meds: Home Meds Albuterol Sulfate [Proair Respiclick] 90 mcg IH ASDIRECTED PRN 11/05/19 [History] Past Medical History - Past Health History Medical/Surgical History: Denies Medical/Surgical History HEENT History: Reports: Impaired Vision 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: GERD Genitourinary History: Reports: Renal Calculus 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 History: known kidney stone [employer] History: Reports: Musculoskeletal History: Reports: Back Pain, Chronic, Fracture Psychiatric History: Reports: Anxiety, Depression, Panic Attack Endocrine/Metabolic History: Reports: Obesity/BMI 30+ Dermatologic History: Reports: Eczema - Infectious Disease History Infectious Disease History: Reports: None - Past Surgical History GI Surgical History: Reports: None Female Surgical History: Reports: None Social & Family History - Family History Family Medical History: No Pertinent Family History Cardiac: Reports: [place] - Tobacco Use Tobacco Use Status *Q: Current Every Day Tobacco User Years of Tobacco use: 2 Packs/Tins Daily: 0.5 - Caffeine Use Caffeine Use: Reports: Soda, Tea - Recreational Drug Use Recreational Drug Use: No - Living Situation & Occupation Occupation: Employed (now working at [employer]) ED ROS ENT - Review of Systems Review Of Systems: See Below Constitutional: Denies: Fever, Chills HEENT: Reports: Ear Pain (Right side) Respiratory: Denies: Shortness of Breath Cardiovascular: Denies: Chest Pain GI/Abdominal: Denies: Nausea, Vomiting Neurological: Denies: Headache ED EXAM, ENT - Physical Exam Exam: See Below Exam Limited By: No Limitations General Appearance: Alert, No Apparent Distress Ears: Other (Despite the patient having pain in the right ear, the left actually looks worse. Both have effusions, the left has some erythema and dullness to the tympanic membrane and there does not appear to be any inflammation of the right tympanic membrane. There is no pain with movement of the ear helix bilaterally.) Respiratory/Chest: No Respiratory Distress, Lungs Clear Cardiovascular: Regular Rate, Rhythm Neurological: Alert, Oriented Psychiatric: Normal Affect, Normal Mood Skin: Warm, Dry Course - Vital Signs Last Recorded V/S: Last Vital Signs Temp 98.9 F 01/25/20 23:39 Pulse 70 01/25/20 23:39 Resp 16 01/25/20 23:39 BP 123/60 01/25/20 23:39 Pulse Ox 96 01/25/20 23:39 - Orders/Labs/Meds Meds: Medications Discontinued Medications Generic Name Dose Route Start Last Admin Trade Name Freq PRN Reason Stop Dose Admin Ibuprofen 600 mg 01/25/20 23:51 01/25/20 23:55 Motrin PO 01/25/20 23:52 600 mg ONETIME ONE Administration - Re-Assessments/Exams Free Text/Narrative Re-Assessment/Exam: 01/25/20 23:53 Patient was given 600 mg of ibuprofen, and placed on amoxicillin 500 mg 3 times a day for at least 7 days for left serous otitis and bilateral effusions. She should recheck on Tuesday if not improving satisfactorily. Continue with ibuprofen or some other anti-inflammatory for discomfort. Departure - Departure Time of Disposition: 00:04 Disposition: Home, Self-Care 01 Clinical Impression: Otitis media Qualifiers: Otitis media type: serous Chronicity: acute Laterality: bilateral Recurrence: recurrent Qualified Code(s): H65.06 - Acute serous otitis media, recurrent, bilateral - Discharge Information Instructions: Otitis Media, Adult, [id number] Referrals: Jelena Espinoza PA [Primary Care Provider] - Forms: ED Department Discharge Care Plan Goals: Take 2 pills of antibiotic tonight, then 3 pills a day for at least 7 days. Ibuprofen will help with discomfort. And consider rechecking in 3 to 4 days if not improving satisfactorily despite taking medication. Return sooner if worsening or concerns. Sepsis Event Note (ED) - Evaluation Sepsis Screening Result: No Definite Risk - Focused Exam Vital Signs: Vital Signs Temp Pulse Resp BP Pulse Ox 01/25/20 23:39 98.9 F 70 16 123/60 96
== END 2020-01-26 00:05 | disposition home or self-care (01) ==
LOC: JP.ED 23:30
DX: H65.06 Acute serous otitis media, recurrent, bilateral (principal); F17.210 Nicotine dependence, cigarettes, uncomplicated; E66.9 Obesity, unspecified; Z68.43 Body mass index [BMI] 50.0-59.9, adult
CPT/HCPCS: 99282; A9270

== ENCOUNTER 2020-03-24 21:59 | Emergency (ER) | payer OTHER, MEDICAID ==
[2020-03-24 23:55] VITALS: BP 144/79; PULSE 86
--- NOTE | 2020-03-25 00:22 | EDM.PDOC ---
ED HPI GENERAL MEDICAL PROBLEM - General Chief Complaint: Upper Extremity Injury/Pain Stated Complaint: R ARM PAIN Time Seen by Provider: 03/24/20 23:25 Source of Information: Reports: Patient History Limitations: Reports: No Limitations - History of Present Illness INITIAL COMMENTS - FREE TEXT/NARRATIVE: 29-year-old female with a right arm injury. She slipped and fell at work striking her right upper arm and right forearm on the floor. She does not have deformity but did develop some bruising on the flexor surface of the forearm and has some pain just above the elbow. She has increased pain with movement of the arm. Onset: Sudden Duration: Hour(s): (About 2-1/2 hours ago) Location: Reports: Upper Extremity, Right Associated Symptoms: Reports: No Other Symptoms Right Lower Arm Pain Score (Numeric/FACES): 4 - Related Data Allergies Allergy/AdvReac Type Severity Reaction Status Date / Time No Known Allergies Allergy Verified 03/24/20 23:50 Home Meds: Home Meds Albuterol Sulfate [Proair Respiclick] 90 mcg IH ASDIRECTED PRN 11/05/19 [History] Past Medical History - Past Health History Medical/Surgical History: Denies Medical/Surgical History HEENT History: Reports: Impaired Vision 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: GERD Genitourinary History: Reports: Renal Calculus 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 History: 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: 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: Musculoskeletal History: Reports: Back Pain, Chronic, Fracture Psychiatric History: Reports: Anxiety, Depression, Panic Attack Endocrine/Metabolic History: Reports: Obesity/BMI 30+ Dermatologic History: Reports: Eczema - Infectious Disease History Infectious Disease History: Reports: None - Past Surgical History GI Surgical History: Reports: None Female Surgical History: Reports: None Social & Family History - Family History Family Medical History: No Pertinent Family History Cardiac: Reports: [place] - Tobacco Use Tobacco Use Status *Q: Current Every Day Tobacco User Years of Tobacco use: 2 Packs/Tins Daily: 0.3 - Caffeine Use Caffeine Use: Reports: Soda - Recreational Drug Use Recreational Drug Use: No - Living Situation & Occupation Occupation: Employed (now working at [employer]) Review of Systems - Review of Systems Review Of Systems: See Below Constitutional: Denies: Fever Respiratory: Reports: No Symptoms Cardiovascular: Reports: No Symptoms GI/Abdominal: Reports: No Symptoms Skin: Reports: Bruising (Small amount of bruising is developed on the flexor surface of the forearm just proximal to the wrist) Neurological: Denies: Headache (No head injury) ED EXAM, GENERAL - Physical Exam Exam: See Below Exam Limited By: No Limitations General Appearance: Alert, No Apparent Distress Head: Atraumatic Neck: Supple, Non-Tender Respiratory/Chest: Lungs Clear Extremities: Other (Exam is otherwise limited to the right arm. No tenderness over the clavicle or the shoulder, she does have tenderness to the mid humerus but no deformity or crepitus. Also tenderness over the distal forearm and wrist with a small amount of bruising on the flexor surface just proximal to the wrist. No swelling. She is able to move her fingers with minimal discomfort.) Neurological: Alert, Oriented Psychiatric: Normal Affect, Normal Mood Course - Vital Signs Last Recorded V/S: Last Vital Signs Temp 97.5 F 03/25/20 00:00 Pulse 86 03/25/20 00:00 Resp 16 03/25/20 00:00 BP 144/79 H 03/25/20 00:00 Pulse Ox 97 03/25/20 00:00 - Orders/Labs/Meds Orders: Active Orders 24 hr Category Date Time Status Forearm 2V Rt [CR] Stat Exams 03/25/20 00:03 Taken Humerus Rt [CR] Stat Exams 03/25/20 00:00 Taken - Re-Assessments/Exams Free Text/Narrative Re-Assessment/Exam: 03/25/20 00:22 X-ray of the right humerus and right forearm were obtained. 03/25/20 00:27 X-rays are negative, patient was reassured there was no fracture and only contusions were present. She should increase activity as tolerated. Departure - Departure Time of Disposition: 00:40 Disposition: Home, Self-Care 01 Clinical Impression: Contusion of right lower arm Qualifiers: Encounter type: initial encounter Qualified Code(s): S50.11XA - Contusion of right forearm, initial encounter Contusion of right upper arm Qualifiers: Encounter type: initial encounter Qualified Code(s): S40.021A - Contusion of right upper arm, initial encounter - Discharge Information Instructions: Contusion, [id number] Referrals: Jelena Espinoza PA [Primary Care Provider] - Forms: ED Department Discharge Care Plan Goals: Ice to sore areas may be helpful as well as ibuprofen. Increase activity as tolerated and consider rechecking in 5 to 10 days if not improving satisfactorily. Sepsis Event Note (ED) - Evaluation Sepsis Screening Result: No Definite Risk - Focused Exam Vital Signs: Vital Signs Temp Pulse Resp BP Pulse Ox 03/25/20 00:00 97.5 F 86 16 144/79 H 97 03/24/20 23:48 97.5 F 86 16 144/79 H 97 - My Orders Last 24 Hours: My Active Orders 03/25/20 00:00 Humerus Rt [CR] Stat 03/25/20 00:03 Forearm 2V Rt [CR] Stat - Assessment/Plan Last 24 Hours: My Active Orders 03/25/20 00:00 Humerus Rt [CR] Stat 03/25/20 00:03 Forearm 2V Rt [CR] Stat
--- NOTE | 2020-03-25 09:17 | CR ---
Humerus Rt, Forearm 2V Rt CLINICAL HISTORY: Fall, pain FINDINGS: There is no acute fracture within the humerus. IMPRESSION: Negative right humerus. Humerus Rt, Forearm 2V Rt CLINICAL HISTORY: Trauma FINDINGS: There is no acute fracture within the forearm. IMPRESSION: Negative right forearm.
== END 2020-03-25 00:41 | disposition home or self-care (01) ==
LOC: JP.ED 21:59
DX: S40.021A Contusion of right upper arm, initial encounter (principal); S50.11XA Contusion of right forearm, initial encounter; E66.9 Obesity, unspecified; Z72.0 Tobacco use; Z68.43 Body mass index [BMI] 50.0-59.9, adult; W01.10XA Fall on same level from slipping, tripping and stumbling with subsequent striking against unspecified object, initial encounter; Y99.0 Civilian activity done for income or pay
CPT/HCPCS: 73060-26-RT; 73060-RT; 73090-26-RT; 73090-RT; 99282; 99283

== ENCOUNTER 2020-04-07 09:58 | Emergency (ER) | payer MEDICAID ==
[2020-04-07 10:12] VITALS: BP 127/70; PULSE 84
[2020-04-07] MEDS ORDERED: Metoclopramide 10 MG/2 ML SDV IM ONE (10:34)
--- NOTE | 2020-04-07 10:41 | EDM.PDOC ---
ED HPI GENERAL MEDICAL PROBLEM - General Chief Complaint: Gastrointestinal Problem Stated Complaint: VOMITTING/DIZZY Time Seen by Provider: 04/07/20 10:25 Source of Information: Reports: Patient, Family History Limitations: Reports: No Limitations - History of Present Illness INITIAL COMMENTS - FREE TEXT/NARRATIVE: 29-year-old female woke up this morning with nausea and vomiting, dizzy when standing and just not feeling well. No pain, no diarrhea, no fevers or chills. She was fine last night, had some pizza at a friend's house. Onset: Unknown/Unsure (Woke up with symptoms this morning) Associated Symptoms: Reports: Malaise, Nausea/Vomiting, Weakness - Related Data Allergies Allergy/AdvReac Type Severity Reaction Status Date / Time No Known Allergies Allergy Verified 04/07/20 10:10 Home Meds: Home Meds Albuterol Sulfate [Proair Respiclick] 90 mcg IH ASDIRECTED PRN 11/05/19 [History] Past Medical History - Past Health History Medical/Surgical History: Denies Medical/Surgical History HEENT History: Reports: Impaired Vision 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: GERD Genitourinary History: Reports: Renal Calculus 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 History: known kidney stone [employer] History: Reports: Musculoskeletal History: Reports: Back Pain, Chronic, Fracture Psychiatric History: Reports: Anxiety, Depression, Panic Attack Endocrine/Metabolic History: Reports: Obesity/BMI 30+ Dermatologic History: Reports: Eczema - Infectious Disease History Infectious Disease History: Reports: None - Past Surgical History GI Surgical History: Reports: None Female Surgical History: Reports: None Social & Family History - Family History Family Medical History: No Pertinent Family History Cardiac: Reports: [place] - Tobacco Use Tobacco Use Status *Q: Current Every Day Tobacco User Years of Tobacco use: 2 Packs/Tins Daily: 0.5 - Caffeine Use Caffeine Use: Reports: Energy Drinks, Tea - Recreational Drug Use Recreational Drug Use: No - Living Situation & Occupation Occupation: Employed (now working at [employer]) ED ROS GENERAL - Review of Systems Review Of Systems: See Below Constitutional: Reports: Malaise, Decreased Appetite. Denies: Fever, Chills HEENT: Reports: No Symptoms Respiratory: Denies: Shortness of Breath Cardiovascular: Denies: Chest Pain GI/Abdominal: Reports: Nausea, Vomiting. Denies: Abdominal Pain, Constipation, Diarrhea : Reports: No Symptoms Skin: Denies: Bruising Neurological: Denies: Headache ED EXAM, GI/ABD - Physical Exam Exam: See Below Exam Limited By: No Limitations General Appearance: Alert, No Apparent Distress (Lying on her right side, looks uncomfortable but not distressed) Eyes: Bilateral: Normal Appearance (No jaundice, good hydration) Head: Atraumatic Respiratory/Chest: No Respiratory Distress, Lungs Clear Cardiovascular: Regular Rate, Rhythm GI/Abdominal Exam: Soft, Non-Tender Neurological: Alert, Oriented Psychiatric: Normal Affect, Normal Mood Skin Exam: Warm, Dry Course - Vital Signs Last Recorded V/S: Last Vital Signs Temp 97.6 F 04/07/20 10:14 Pulse 84 04/07/20 10:14 Resp 17 04/07/20 10:14 BP 127/70 04/07/20 10:14 Pulse Ox 97 04/07/20 10:14 Orthostatic Blood Pressure [ 147/96 Standing] Orthostatic Blood Pressure [ 131/87 Sitting] Orthostatic Blood Pressure [ 132/86 Supine] - Orders/Labs/Meds Meds: Medications Discontinued Medications Generic Name Dose Route Start Last Admin Trade Name Jaime PRN Reason Stop Dose Admin Metoclopramide HCl 10 mg 04/07/20 10:34 04/07/20 10:46 Reglan IM 04/07/20 10:35 10 mg ONETIME ONE Administration - Re-Assessments/Exams Free Text/Narrative Re-Assessment/Exam: 04/07/20 10:40 Orthostatics were done which were normal. She did have a couple episodes of dry heaving while in the emergency room. She was given 10 mg of IM Reglan, and 5 doses of sublingual Zofran to take today and will rest with fluids. Return tomorrow if not improving. A note was given for work for today and tomorrow. Departure - Departure Time of Disposition: 11:13 Disposition: Home, Self-Care 01 Clinical Impression: Nausea and vomiting Qualifiers: Vomiting type: unspecified Vomiting Intractability: non-intractable Qualified Code(s): R11.2 - Nausea with vomiting, unspecified - Discharge Information Instructions: Nausea and Vomiting, Adult Referrals: Jelena Espinoza PA [Primary Care Provider] - Forms: ED Department Discharge Care Plan Goals: Rest today, frequent small amounts of fluids and increase diet slowly. Use Zofran under your tongue every 4-6 hours for persistent nausea and vomiting. Recheck tomorrow if not improving, or return at any time if worsening such as fever or pain. Sepsis Event Note (ED) - Evaluation Sepsis Screening Result: No Definite Risk - Focused Exam Vital Signs: Vital Signs Temp Pulse Resp BP Pulse Ox 04/07/20 10:14 97.6 F 84 17 127/70 97 04/07/20 10:11 97.6 F 84 17 127/70 97
== END 2020-04-07 11:13 | disposition home or self-care (01) ==
LOC: JP.ED 09:58
DX: R11.2 Nausea with vomiting, unspecified (principal); E66.9 Obesity, unspecified; Z68.44 Body mass index [BMI] 60.0-69.9, adult; Z72.0 Tobacco use
CPT/HCPCS: 96372; 99283; J2765

== ENCOUNTER 2020-06-18 19:23 | Emergency (ER) | payer OTHER ==
[2020-06-18 19:58] VITALS: BP 135/75; PULSE 100
[2020-06-18] MEDS ORDERED: Acetaminophen/oxyCODONE 325-5 MG Tab PO STA (20:06)
--- NOTE | 2020-06-18 20:10 | EDM.PDOC ---
ED HPI GENERAL MEDICAL PROBLEM - General Chief Complaint: Lower Extremity Injury/Pain Stated Complaint: FELL AT [facility]/SIDE ACHE Time Seen by Provider: 06/18/20 20:00 Source of Information: Reports: Patient, Old Records History Limitations: Reports: No Limitations - History of Present Illness INITIAL COMMENTS - FREE TEXT/NARRATIVE: 29 yo female was at the local [facility] and her shoes slipped and she fell with resulting injury to the L posterior thigh. Can just barely bare weight on that leg, but cannot walk. [place] a crack when she fell. Has no pain in any other areas. No tx prior to arrival. Onset: Today, Sudden Onset Date: 06/18/20 Duration: Minutes:, Constant Location: Reports: Lower Extremity, Left Quality: Reports: Ache Severity: Moderate Improves with: Reports: Rest Worsens with: Reports: Movement Context: Reports: Trauma Associated Symptoms: Reports: No Other Symptoms Treatments EXPLOSIVE SPECIALIST: Reports: Other (see below) (none) Left Leg Pain Score (Numeric/FACES): 10 - Related Data Allergies Allergy/AdvReac Type Severity Reaction Status Date / Time No Known Allergies Allergy Verified 06/18/20 20:02 Home Meds: Home Meds NK [No Known Home Meds] 06/18/20 [History] Past Medical History - Past Health History Medical/Surgical History: Denies Medical/Surgical History HEENT History: Reports: Impaired Vision 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: GERD Genitourinary History: Reports: Renal Calculus 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 History: known kidney stone DEVELOPMENTAL SPECIALIST History: Reports: Musculoskeletal History: Reports: Back Pain, Chronic, Fracture Psychiatric History: Reports: Anxiety, Depression, Panic Attack Endocrine/Metabolic History: Reports: Obesity/BMI 30+ Dermatologic History: Reports: Eczema - Infectious Disease History Infectious Disease History: Reports: None - Past Surgical History GI Surgical History: Reports: None Female Surgical History: Reports: None Social & Family History - Family History Family Medical History: No Pertinent Family History Cardiac: Reports: [place] - Caffeine Use Caffeine Use: Reports: Energy Drinks, Tea - Living Situation & Occupation Occupation: Employed (now working at [employer]) Review of Systems - Review of Systems Review Of Systems: See Below Constitutional: Reports: No Symptoms Respiratory: Reports: No Symptoms Cardiovascular: Reports: No Symptoms GI/Abdominal: Reports: No Symptoms Genitourinary: Reports: No Symptoms Musculoskeletal: Reports: Leg Pain (L posterior thigh) Skin: Reports: No Symptoms Neurological: Reports: No Symptoms ED EXAM, GENERAL - Physical Exam Exam: See Below Exam Limited By: No Limitations General Appearance: Alert, WD/WN, No Apparent Distress Eye Exam: Bilateral Eye: Normal Inspection Ears: Normal External Exam, Normal Canal, Hearing Grossly Normal Ear Exam: Bilateral Ear: Auricle Normal, Canal Normal Nose: Normal Inspection, No Blood Throat/Mouth: Normal Lips, Normal Voice, No Airway Compromise Head: Atraumatic, Normocephalic Neck: Normal Inspection Respiratory/Chest: No Respiratory Distress Extremities: Normal Inspection, Limited Range of Motion (due to pain). No: Normal Range of Motion (due to pain), Pedal Edema, Redness Neurological: Alert, Oriented, CN II-XII Intact, Normal Cognition, No Motor/Sensory Deficits Course - Vital Signs Last Recorded V/S: Last Vital Signs Temp 36.8 C 06/18/20 20:03 Pulse 100 06/18/20 20:03 Resp 16 06/18/20 20:03 BP 135/75 06/18/20 20:03 Pulse Ox 99 06/18/20 20:03 - Orders/Labs/Meds Orders: Active Orders 24 hr Category Date Time Status Femur Min 2V Lt [CR] Stat Exams 06/18/20 20:06 Taken Meds: Medications Discontinued Medications Generic Name Dose Route Start Last Admin Trade Name Meleq PRN Reason Stop Dose Admin Oxycodone/Acetaminophen 1 tab 06/18/20 20:06 06/18/20 20:20 Acetaminophen/Oxycodone 325-5 Mg Tab PO 06/18/20 20:07 1 tab ONETIME STA Administration - Radiology Interpretation Free Text/Narrative:: L femur X-ray-neg Departure - Departure Time of Disposition: 21:08 Disposition: Home, Self-Care 01 Condition: Fair Clinical Impression: Strain of left hamstring Qualifiers: Encounter type: initial encounter Qualified Code(s): S76.312A - Strain of muscle, fascia and tendon of the posterior muscle group at thigh level, left thigh, initial encounter - Discharge Information *PRESCRIPTION DRUG MONITORING PROGRAM REVIEWED*: No *COPY OF PRESCRIPTION DRUG MONITORING REPORT IN PATIENT TAVO: No Referrals: Jelena Espinoza PA [Primary Care Provider] - Forms: ED Department Discharge Additional Instructions: Take ibuprofen 600 mg every 6 hrs as needed for pain relief. Add either acetaminophen OR [place] for added relief. Recheck with your provider on Tuesday if still in pain. Use the walker to help with ambulation. Sepsis Event Note (ED) - Evaluation Sepsis Screening Result: No Definite Risk - Focused Exam Vital Signs: Vital Signs Temp Pulse Resp BP Pulse Ox 06/18/20 20:03 36.8 C 100 16 135/75 99 06/18/20 19:55 36.8 C 100 16 135/75 99 - My Orders Last 24 Hours: My Active Orders 06/18/20 20:06 Femur Min 2V Lt [CR] Stat - Assessment/Plan Last 24 Hours: My Active Orders 06/18/20 20:06 Femur Min 2V Lt [CR] Stat
--- NOTE | 2020-06-19 09:11 | CR ---
Femur Min 2V Lt CLINICAL HISTORY: Fall FINDINGS: No fracture or osseous lesion is seen. Hip joint appears intact. Images are limited by patient's large body habitus IMPRESSION: No fracture seen
== END 2020-06-18 21:21 | disposition home or self-care (01) ==
LOC: JP.ED 19:23
DX: S76.312A Strain of muscle, fascia and tendon of the posterior muscle group at thigh level, left thigh, initial encounter (principal); E66.9 Obesity, unspecified; Z68.44 Body mass index [BMI] 60.0-69.9, adult; W01.0XXA Fall on same level from slipping, tripping and stumbling without subsequent striking against object, initial encounter
CPT/HCPCS: 73552; 99283; A9270

== ENCOUNTER 2020-11-19 04:37 | Emergency (ER) | payer OTHER ==
[2020-11-19 05:10] VITALS: BP 136/83; PULSE 91
--- NOTE | 2020-11-19 05:23 | EDM.PDOC ---
ED HPI GENERAL MEDICAL PROBLEM - General Chief Complaint: Respiratory Problem Stated Complaint: HEAD COLD/THROAT PAIN Time Seen by Provider: 11/19/20 05:10 Source of Information: Reports: Patient, Old Records, RN History Limitations: Reports: No Limitations - History of Present Illness INITIAL COMMENTS - FREE TEXT/NARRATIVE: 30 yo female with a sore throat and cough since Tuesday. No fever. No self tx. Is not a smoker. Is concerned about "bronchitis". Does not want to be tested for Covid. Says she felt like it was hard to breath at home. Is not aware of wheezing. Onset: Gradual Onset Date: 11/17/20 Duration: Day(s): (2), Getting Worse Location: Reports: Neck (throat) Quality: Reports: Ache Severity: Moderate Improves with: Reports: None Worsens with: Reports: Other (? time) Context: Reports: Other (See HPI) Associated Symptoms: Reports: Cough (non productive). Denies: Chest Pain, Fever/Chills, Nausea/Vomiting, Shortness of Breath Treatments CHIROPRACTIC DOCTOR: Reports: Other (see below) (none) sore throat Pain Score (Numeric/FACES): 4 - Related Data Allergies Allergy/AdvReac Type Severity Reaction Status Date / Time No Known Allergies Allergy Verified 11/19/20 05:00 Home Meds: Home Meds NK [No Known Home Meds] 06/18/20 [History] Past Medical History - Past Health History Medical/Surgical History: Denies Medical/Surgical History HEENT History: Reports: Impaired Vision 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: GERD Genitourinary History: Reports: Renal Calculus 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 History: known kidney stone [employer]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: Musculoskeletal History: Reports: Back Pain, Chronic, Fracture, Other (See Below) Other Musculoskeletal History: right wrist fx Psychiatric History: Reports: Anxiety, Depression, Panic Attack Endocrine/Metabolic History: Reports: Obesity/BMI 30+ Dermatologic History: Reports: Eczema - Infectious Disease History Infectious Disease History: Reports: None - Past Surgical History GI Surgical History: Reports: None Female Surgical History: Reports: None Social & Family History - Family History Family Medical History: No Pertinent Family History Cardiac: Reports: [place] - Tobacco Use Tobacco Use Status *Q: Never Tobacco User - Caffeine Use Caffeine Use: Reports: Tea - Recreational Drug Use Recreational Drug Use: No - Living Situation & Occupation Occupation: Employed (now working at [employer]) ED ROS GENERAL - Review of Systems Review Of Systems: See Below Constitutional: Reports: No Symptoms. Denies: Fever, Chills HEENT: Reports: Throat Pain. Denies: Rhinitis Respiratory: Reports: Shortness of Breath (subjective), Cough. Denies: Wheezing, Pleuritic Chest Pain, Sputum, Hemoptysis Cardiovascular: Reports: No Symptoms GI/Abdominal: Reports: No Symptoms : Reports: No Symptoms Musculoskeletal: Reports: No Symptoms Skin: Reports: No Symptoms Neurological: Reports: No Symptoms ED EXAM, GENERAL - Physical Exam Exam: See Below Exam Limited By: No Limitations General Appearance: Alert, WD/WN, No Apparent Distress, Obese Eye Exam: Bilateral Eye: Normal Inspection Ears: Normal External Exam, Normal Canal, Hearing Grossly Normal. No: Hearing Loss Ear Exam: Bilateral Ear: Auricle Normal, Canal Normal Nose: Normal Inspection, No Blood Throat/Mouth: Normal Inspection, Normal Lips, Normal Oropharynx, Normal Voice, No Airway Compromise Head: Atraumatic, Normocephalic Neck: Normal Inspection Respiratory/Chest: No Respiratory Distress, Lungs Clear, Normal Breath Sounds, No Accessory Muscle Use. No: Wheezing Cardiovascular: Regular Rate, Rhythm, No Edema Extremities: Normal Inspection Neurological: Alert, Oriented, CN II-XII Intact, Normal Cognition, No Motor/Sensory Deficits Psychiatric: Normal Affect, Normal Mood Skin Exam: Warm, Dry, Intact, Normal Color, No Rash Course - Vital Signs Last Recorded V/S: Last Vital Signs Temp 36.8 C 11/19/20 05:09 Pulse 91 11/19/20 05:09 Resp 13 11/19/20 05:09 BP 136/83 11/19/20 05:09 Pulse Ox 97 11/19/20 05:09 Departure - Departure Time of Disposition: 05:23 Disposition: Home, Self-Care 01 Condition: Good Clinical Impression: Viral illness - Discharge Information *PRESCRIPTION DRUG MONITORING PROGRAM REVIEWED*: Not Applicable *COPY OF PRESCRIPTION DRUG MONITORING REPORT IN PATIENT TAVO: Not Applicable Instructions: Viral Illness, Adult Referrals: PCP,None [Primary Care Provider] - Additional Instructions: Ibuprofen and/or acetaminophen as needed. Rest. Handwashing to prevent spread. Consider strongly getting vaccinated for Covid. See your provider if worse. Avoid smoke exposure. Sepsis Event Note (ED) - Evaluation Sepsis Screening Result: No Definite Risk - Focused Exam Vital Signs: Vital Signs Temp Pulse Resp BP Pulse Ox 11/19/20 05:09 36.8 C 91 13 136/83 97 11/19/20 05:07 36.8 C 91 13 136/83 97
== END 2020-11-19 05:30 | disposition home or self-care (01) ==
LOC: JP.ED 04:37
DX: B34.9 Viral infection, unspecified (principal); E66.9 Obesity, unspecified; Z68.44 Body mass index [BMI] 60.0-69.9, adult
CPT/HCPCS: 99283

== ENCOUNTER 2020-12-20 13:52 | Emergency (ER) | payer OTHER ==
[2020-12-20 14:15] VITALS: BP 95/38; PULSE 75
[2020-12-20] MEDS ORDERED: Ketorolac 30 MG/ML SDV IVPUSH ONE (14:58)
[2020-12-20] MEDS ORDERED: Cyclobenzaprine 10 MG Tab PO ONE (14:58)
--- NOTE | 2020-12-20 15:01 | EDM.PDOC ---
ED HPI GENERAL MEDICAL PROBLEM - General Chief Complaint: Back Pain or Injury Stated Complaint: FALL VIA [place]TH Time Seen by Provider: 12/20/20 14:54 Source of Information: Reports: Patient, Family, RN Notes Reviewed History Limitations: Reports: Physical Impairment - History of Present Illness INITIAL COMMENTS - FREE TEXT/NARRATIVE: 30-year-old female presents emergency department today via EMS services, for complaint of low back pain, she was bending over sudden onset of low back pain predominantly on the left she did receive 50 mcg of fentanyl in the emergency department which did help relieve some pain she is having difficulty with movement. 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: Musculoskeletal History: Reports: Back Pain, Chronic, Fracture, Other (See Below) Other Musculoskeletal History: right wrist fx Psychiatric History: Reports: Anxiety, Depression, Panic Attack Endocrine/Metabolic History: Reports: Obesity/BMI 30+ Dermatologic History: Reports: Eczema - Infectious Disease History Infectious Disease History: Reports: None - Past Surgical History GI Surgical History: Reports: None Female Surgical History: Reports: None Social & Family History - Family History Family Medical History: No Pertinent Family History Cardiac: Reports: [place] - Tobacco Use Tobacco Use Status *Q: Current Every Day Tobacco User Years of Tobacco use: 10 Packs/Tins Daily: 0 - Caffeine Use Caffeine Use: Reports: Tea - Recreational Drug Use Recreational Drug Use: No - Living Situation & Occupation Occupation: Employed (now working at [employer]) ED ROS GENERAL - Review of Systems Review Of Systems: See Below Respiratory: Reports: No Symptoms Cardiovascular: Reports: No Symptoms GI/Abdominal: Reports: No Symptoms Musculoskeletal: Reports: Back Pain ED EXAM,LOWER BACK PAIN/INJURY - Physical Exam Exam: See Below Text/Narrative:: Exam is limited by body habitus I do palpate an area lumbar hip region on the left side it seems to be painful there is no spinal tenderness straight leg test cross leg test both negative Exam Limited By: No Limitations General Appearance: Alert, WD/WN, No Apparent Distress Course - Vital Signs Last Recorded V/S: Last Vital Signs Temp 98.4 F 12/20/20 14:13 Pulse 75 12/20/20 14:13 Resp 20 12/20/20 14:13 BP 95/38 L 12/20/20 14:13 Pulse Ox 97 12/20/20 14:13 - Orders/Labs/Meds Meds: Medications Discontinued Medications Generic Name Dose Route Start Last Admin Trade Name Jaime PRN Reason Stop Dose Admin Cyclobenzaprine HCl 10 mg 12/20/20 14:58 12/20/20 15:23 Cyclobenzaprine 10 Mg Tab PO 12/20/20 14:59 10 mg ONETIME ONE Administration Hydromorphone HCl 1 mg 12/20/20 16:03 12/20/20 16:17 Hydromorphone 1 Mg/Ml Syringe IVPUSH 12/20/20 16:04 1 mg ONETIME ONE Administration Ketorolac Tromethamine 30 mg 12/20/20 14:58 12/20/20 15:23 Ketorolac 30 Mg/Ml Sdv IVPUSH 12/20/20 14:59 30 mg ONETIME ONE Administration Departure - Departure Time of Disposition: 17:23 Disposition: Home, Self-Care 01 Condition: Fair Clinical Impression: Low back pain Qualifiers: Chronicity: acute Back pain laterality: left Sciatica presence: without sciatica Qualified Code(s): M54.50 - Low back pain, unspecified - Discharge Information Instructions: Acute Back Pain, Adult Referrals: Jelena Espinoza PA [Primary Care Provider] - Forms: ED Department Discharge Additional Instructions: Use ibuprofen for baseline pain control, use hydrocodone for breakthrough pain, continue to use the Flexeril as needed for muscle relaxant, please followup with your primary care provider in 3-5 days if not better, please call return to the emergency department with worsening of symptoms. Sepsis Event Note (ED) - Evaluation Sepsis Screening Result: No Definite Risk - Focused Exam Vital Signs: Vital Signs Temp Pulse Resp BP Pulse Ox 12/20/20 14:13 98.4 F 75 20 95/38 L 97 - Assessment/Plan Plan: Assessment Acuity = acute Site and laterality = acute low back pain left side Etiology = secondary to lifting injury Manifestations = none Location of injury = Home Lab values = none Plan Good improvement combination Toradol, Flexeril and hydromorphone, discharged home with hydrocodone 5/325 1 tab p.o. 3 times daily as needed total #10 as well as Flexeril 10 mg 1 tab p.o. 3 times daily as needed total #15 follow-up primary care 3 to 5 days if not better This note was dictated using Swiftpage voice recognition software please call with any questions on syntax or grammar.
[2020-12-20] MEDS ORDERED: HYDROmorphone 1 MG/ML Syringe IVPUSH ONE (16:03)
== END 2020-12-20 17:54 | disposition home or self-care (01) ==
LOC: JP.ED 13:52
DX: M54.50 Low back pain, unspecified (principal); E66.9 Obesity, unspecified; Z68.44 Body mass index [BMI] 60.0-69.9, adult; Z72.0 Tobacco use
CPT/HCPCS: 96374; 96375; 99284; A9270; J1170; J1885

== ENCOUNTER 2021-01-19 14:36 | Emergency (ER) | payer OTHER ==
[2021-01-19] MEDS ORDERED: Ondansetron 4 MG Tab.DIS PO ONE (16:21)
--- NOTE | 2021-01-19 16:33 | EDM.PDOC ---
ED HPI GENERAL MEDICAL PROBLEM - General Chief Complaint: General Stated Complaint: SYMPTOMS OF COVID WORSENING Time Seen by Provider: 01/19/21 16:10 Source of Information: Reports: Patient, Old Records, RN History Limitations: Reports: No Limitations - History of Present Illness INITIAL COMMENTS - FREE TEXT/NARRATIVE: 30 yo female [facility] with a couple days of covid sx's and tested +. She was not offered BAM. She called back today due to feeling worse and no one got back to her so she is here now. Has a cough. No fever. Diarrhea, nausea and vomiting. No self tx. Is mildly SOB. Onset: Gradual Onset Date: 01/14/21 Duration: Day(s):, Getting Worse Location: Reports: Generalized Quality: Reports: Other (pain not reported) Severity: Mild Improves with: Reports: None Worsens with: Reports: Other (time) Context: Reports: Other (See HPI) Associated Symptoms: Reports: Cough, Malaise, Nausea/Vomiting, Other (diarrhea). 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: Musculoskeletal History: Reports: Back Pain, Chronic, Fracture, Other (See Below) Other Musculoskeletal History: right wrist fx Psychiatric History: Reports: Anxiety, Depression, Panic Attack Endocrine/Metabolic History: Reports: Obesity/BMI 30+ Dermatologic History: Reports: Eczema - Infectious Disease History Infectious Disease History: Reports: None - Past Surgical History GI Surgical History: Reports: None Female Surgical History: Reports: None Social & Family History - Family History Family Medical History: No Pertinent Family History Cardiac: Reports: [place] - Tobacco Use Tobacco Use Status *Q: Never Tobacco User - Caffeine Use Caffeine Use: Reports: Tea - Recreational Drug Use Recreational Drug Use: No - Living Situation & Occupation Occupation: Employed (now working at [employer]) ED ROS GENERAL - Review of Systems Review Of Systems: See Below Constitutional: Reports: Malaise. Denies: Fever, Chills HEENT: Reports: No Symptoms Respiratory: Reports: Shortness of Breath, Cough. Denies: Sputum Cardiovascular: Reports: No Symptoms Endocrine: Reports: No Symptoms GI/Abdominal: Reports: Diarrhea, Nausea, Vomiting. Denies: Black Stool, Bloody Stool, Melena : Reports: No Symptoms Musculoskeletal: Reports: No Symptoms Skin: Reports: No Symptoms Neurological: Reports: No Symptoms ED EXAM, GENERAL - Physical Exam Exam: See Below Exam Limited By: No Limitations General Appearance: Alert, WD/WN, No Apparent Distress, Obese Eye Exam: Bilateral Eye: Normal Inspection, PERRL Ears: Normal External Exam, Normal Canal, Hearing Grossly Normal, Normal TMs Ear Exam: Bilateral Ear: Auricle Normal, Canal Normal, TM normal Nose: Normal Inspection, No Blood Throat/Mouth: Normal Inspection, Normal Lips, Normal Oropharynx, Normal Voice, No Airway Compromise Head: Atraumatic, Normocephalic Neck: Normal Inspection Respiratory/Chest: No Respiratory Distress, No Accessory Muscle Use, Crackles Cardiovascular: Regular Rate, Rhythm, No Edema GI/Abdominal: Normal Bowel Sounds, Soft, Non-Tender, No Distention Back Exam: Normal Inspection. No: CVA Tenderness (R), CVA Tenderness (L) Extremities: Normal Inspection, Normal Range of Motion, Non-Tender, No Pedal Edema Neurological: Alert, Oriented, CN II-XII Intact, Normal Cognition, No Motor/Sensory Deficits Psychiatric: Normal Affect, Normal Mood Course - Vital Signs Last Recorded V/S: Last Vital Signs Temp 36.7 C 01/19/21 17:13 Pulse 99 01/19/21 17:13 Resp 20 01/19/21 17:13 BP 129/83 01/19/21 17:13 Pulse Ox 95 01/19/21 17:13 - Orders/Labs/Meds Orders: Active Orders 24 hr Category Date Time Status Acetaminophen [TylenoL] Med 01/19/21 17:00 Active 650 mg PO ONETIME PRN EPINEPHrine [Adrenalin] Med 01/19/21 17:00 Active 0.3 mg IM ONETIME PRN Famotidine [Pepcid] Med 01/19/21 17:00 Active 20 mg IV ONETIME PRN diphenhydrAMINE [Benadryl] Med 01/19/21 17:00 Active 50 mg IVPUSH ONETIME PRN methylPREDNISolone Sod Succ [Solu-MEDROL] Med 01/19/21 17:00 Active 125 mg IVPUSH ONETIME PRN Medication Orders Acetaminophen (Acetaminophen 325 Mg Tab) 650 mg PO ONETIME PRN PRN Reason: HEADACHE,CHILLS Diphenhydramine HCl (Diphenhydramine 50 Mg/Ml Sdv) 50 mg IVPUSH ONETIME PRN PRN Reason: ALLERGIC RXN Epinephrine HCl (Epinephrine 1 Mg/Ml Sdv) 0.3 mg IM ONETIME PRN PRN Reason: ALLERGIC RXN Famotidine (Famotidine 20 Mg/2 Ml Sdv) 20 mg IV ONETIME PRN PRN Reason: ALLERGIC RXN Methylprednisolone Sodium Succinate (Methylprednisolone Sodium Succinate 125 M g/2 Ml Sdv) 125 mg IVPUSH ONETIME PRN PRN Reason: ALLERGIC RXN Meds: Medications Generic Name Dose Route Start Last Admin Trade Name Freq PRN Reason Stop Dose Admin Acetaminophen 650 mg 01/19/21 17:00 Acetaminophen 325 Mg Tab PO ONETIME PRN HEADACHE,CHILLS Diphenhydramine HCl 50 mg 01/19/21 17:00 Diphenhydramine 50 Mg/Ml Sdv IVPUSH ONETIME PRN ALLERGIC RXN Epinephrine HCl 0.3 mg 01/19/21 17:00 Epinephrine 1 Mg/Ml Sdv IM ONETIME PRN ALLERGIC RXN Famotidine 20 mg 01/19/21 17:00 Famotidine 20 Mg/2 Ml Sdv IV ONETIME PRN ALLERGIC RXN Methylprednisolone Sodium Succinate 125 mg 01/19/21 17:00 Methylprednisolone Sodium Succinate 125 Mg/2 Ml Sdv IVPUSH ONETIME PRN ALLERGIC RXN Discontinued Medications Generic Name Dose Route Start Last Admin Trade Name Freq PRN Reason Stop Dose Admin Bamlanivimab 700 mg/ 160 mls @ 310 mls/hr 01/19/21 17:00 01/19/21 17:11 Etesevimab 1,400 mg/ Sodium IV 01/19/21 17:30 310 mls/hr Chloride ONETIME ONE Administration Ondansetron HCl 4 mg 01/19/21 16:21 01/19/21 16:37 Ondansetron 4 Mg Tab.Dis PO 01/19/21 16:22 4 mg ONETIME ONE Administration - Re-Assessments/Exams Free Text/Narrative Re-Assessment/Exam: 01/19/21 16:34 Is definitely a candidate for BAM, will try to arrange for her to get it today. Departure - Departure Time of Disposition: 18:45 Disposition: Home, Self-Care 01 Condition: Fair Clinical Impression: COVID-19 - Discharge Information *PRESCRIPTION DRUG MONITORING PROGRAM REVIEWED*: Not Applicable *COPY OF PRESCRIPTION DRUG MONITORING REPORT IN PATIENT TAVO: Not Applicable Referrals: Jelena Espinoza PA [Primary Care Provider] - Forms: ED Department Discharge Additional Instructions: Stay in touch with your provider regarding your condition. Recheck if your breathing is a lot worse. Use Zofran as needed for nausea and loperamide(over the counter) for diarrhea symptoms. Acetaminophen for pain or fever control. Sepsis Event Note (ED) - Evaluation Sepsis Screening Result: No Definite Risk - Focused Exam Vital Signs: Vital Signs Temp Pulse Resp BP Pulse Ox 01/19/21 17:13 36.7 C 99 20 129/83 95 01/19/21 15:44 36.4 C 117 H 20 119/83 94 L - My Orders Last 24 Hours: My Active Orders 01/19/21 17:00 Acetaminophen [TylenoL] 650 mg PO ONETIME PRN EPINEPHrine [Adrenalin] 0.3 mg IM ONETIME PRN Famotidine [Pepcid] 20 mg IV ONETIME PRN diphenhydrAMINE [Benadryl] 50 mg IVPUSH ONETIME PRN methylPREDNISolone Sod Succ [Solu-MEDROL] 125 mg IVPUSH ONETIME PRN - Assessment/Plan Last 24 Hours: My Active Orders 01/19/21 17:00 Acetaminophen [TylenoL] 650 mg PO ONETIME PRN EPINEPHrine [Adrenalin] 0.3 mg IM ONETIME PRN Famotidine [Pepcid] 20 mg IV ONETIME PRN diphenhydrAMINE [Benadryl] 50 mg IVPUSH ONETIME PRN methylPREDNISolone Sod Succ [Solu-MEDROL] 125 mg IVPUSH ONETIME PRN
[2021-01-19] MEDS ORDERED: diphenhydrAMINE 50 MG/ML SDV IVPUSH PRN (17:00)
[2021-01-19] MEDS ORDERED: Bamlanivimab 700 MG, ETESEVIMAB 1,400 MG in Sodium Chloride 0.9% 100 ML IV ONE (17:00)
[2021-01-19] MEDS ORDERED: methylPREDNISolone Sodium Succinate 125 MG/2 ML SDV IVPUSH PRN (17:00)
[2021-01-19] MEDS ORDERED: Famotidine 20 MG/2 ML SDV IV PRN (17:00)
[2021-01-19] MEDS ORDERED: Acetaminophen 325 MG Tab PO PRN (17:00)
[2021-01-19] MEDS ORDERED: EPINEPHrine 1 MG/ML SDV IM PRN (17:00)
[2021-01-19 18:43] VITALS: BP 151/89; PULSE 96
== END 2021-01-19 18:52 | disposition home or self-care (01) ==
LOC: JP.ED 14:36
DX: U07.1 COVID-19 (principal); E66.9 Obesity, unspecified; Z68.44 Body mass index [BMI] 60.0-69.9, adult
CPT/HCPCS: 99283-25; A9270-GY; M0245; Q0245

== ENCOUNTER 2021-05-09 19:14 | Emergency (ER) | payer OTHER ==
[2021-05-09] MEDS ORDERED: Acetaminophen/oxyCODONE 325-5 MG Tab PO ONE (20:01)
[2021-05-09] MEDS ORDERED: Lidocaine 4% Top Soln 50 ML Bottle MUCMEM ONE (20:02)
[2021-05-09 20:25] VITALS: BP 140/74; PULSE 74
== END 2021-05-09 20:42 | disposition home or self-care (01) ==
LOC: JP.ED 19:14
DX: K08.89 Other specified disorders of teeth and supporting structures (principal); E66.9 Obesity, unspecified; Z68.44 Body mass index [BMI] 60.0-69.9, adult; Z87.891 Personal history of nicotine dependence
CPT/HCPCS: 81025; 99282; 99283; A9270-GY

== ENCOUNTER 2021-05-28 03:18 | Emergency (ER) | payer OTHER | END 2021-05-28 04:00 | disposition home or self-care (01) | LOC: JP.ED 03:18 | DX: U07.1 COVID-19 (principal); N39.0 Urinary tract infection, site not specified; K21.9 Gastro-esophageal reflux disease without esophagitis; E66.9 Obesity, unspecified; Z68.44 Body mass index [BMI] 60.0-69.9, adult | CPT/HCPCS: 81001; 87086; 87088; 87186; 99283 ==

== ENCOUNTER 2021-06-28 21:16 | Emergency (ER) | payer OTHER ==
[2021-06-28 21:30] VITALS: BP 134/84; PULSE 98
== END 2021-06-28 22:00 | disposition home or self-care (01) ==
LOC: JP.ED 21:16
DX: H69.83 Other specified disorders of Eustachian tube, bilateral (principal); J30.1 Allergic rhinitis due to pollen; K21.9 Gastro-esophageal reflux disease without esophagitis; E66.9 Obesity, unspecified; Z68.42 Body mass index [BMI] 45.0-49.9, adult; Z86.16 Personal history of COVID-19
CPT/HCPCS: 99282

== ENCOUNTER 2021-07-05 08:48 | Emergency (ER) | payer MEDICAID, OTHER ==
[2021-07-05 09:18] VITALS: BP 136/85; PULSE 85
[2021-07-05] MEDS ORDERED: Loperamide 2 MG Cap PO ONE (09:34)
== END 2021-07-05 09:55 | disposition home or self-care (01) ==
LOC: JP.ED 08:48
DX: R19.7 Diarrhea, unspecified (principal); K21.9 Gastro-esophageal reflux disease without esophagitis; E66.9 Obesity, unspecified; Z68.44 Body mass index [BMI] 60.0-69.9, adult; Z91.018 Allergy to other foods; Z86.16 Personal history of COVID-19
CPT/HCPCS: 99283; A9270; 99281

== ENCOUNTER 2021-08-27 05:05 | Emergency (ER) | payer MEDICAID ==
[2021-08-27 05:18] VITALS: BP 132/72; PULSE 74
[2021-08-27] MEDS ORDERED: Ketorolac 30 MG/ML SDV IVPUSH ONE (05:39)
[2021-08-27] MEDS ORDERED: Ondansetron 4 MG/2 ML SDV IVPUSH ONE (05:39)
[2021-08-27] MEDS ORDERED: Sodium Chloride 0.9% 10 ML Syringe FLUSH PRN (05:39)
[2021-08-27] MEDS ORDERED: Sodium Chloride 0.9% 1,000 ML IV SCH (05:45)
[2021-08-27 06:04] LABS: ESTIMATED GFR 102 mL/min (>60)
== END 2021-08-27 06:52 | disposition home or self-care (01) ==
LOC: JP.ED 05:05
DX: R10.11 Right upper quadrant pain (principal); E66.01 Morbid (severe) obesity due to excess calories; Z91.018 Allergy to other foods; Z68.44 Body mass index [BMI] 60.0-69.9, adult; Z87.891 Personal history of nicotine dependence; Z86.16 Personal history of COVID-19
CPT/HCPCS: 36415; 74176; 80053; 81001; 81025; 83690; 85025; 86140; 96361; 96374; 99282; 99284; J2405; J3490; J7030; J1885

== ENCOUNTER 2021-12-22 02:14 | Emergency (ER) | payer MEDICAID ==
[2021-12-22 02:40] VITALS: BP 151/70; PULSE 77
== END 2021-12-22 03:51 | disposition home or self-care (01) ==
LOC: JP.ED 02:14
DX: R07.89 Other chest pain (principal); Z91.018 Allergy to other foods; Z87.891 Personal history of nicotine dependence
CPT/HCPCS: 36415; 80048; 84484; 85025; 93005; 99285

== ENCOUNTER 2022-03-18 14:46 | Emergency (ER) | payer MEDICAID ==
[2022-03-18 15:06] VITALS: BP 123/56; PULSE 92
== END 2022-03-18 16:32 | disposition home or self-care (01) ==
LOC: JP.ED 14:46
DX: F41.8 Other specified anxiety disorders (principal); G57.12 Meralgia paresthetica, left lower limb; K21.9 Gastro-esophageal reflux disease without esophagitis; E66.01 Morbid (severe) obesity due to excess calories; Z68.44 Body mass index [BMI] 60.0-69.9, adult; Z91.018 Allergy to other foods; Z87.891 Personal history of nicotine dependence; Z86.16 Personal history of COVID-19
CPT/HCPCS: 99282; 99283

== ENCOUNTER 2022-11-07 02:03 | Emergency (ER) | payer MEDICAID | END 2022-11-07 03:24 | disposition left against medical advice (07) | LOC: JP.ED 02:03 | DX: Z53.21 Procedure and treatment not carried out due to patient leaving prior to being seen by health care provider (principal) ==

== ENCOUNTER 2023-01-17 10:36 | Emergency (ER) | payer MEDICAID ==
[2023-01-17 11:02] VITALS: BP 137/87; PULSE 91
[2023-01-17] MEDS ORDERED: Ondansetron 4 MG Tab.DIS PO ONE (11:26)
[2023-01-17] MEDS ORDERED: Pantoprazole 40 MG Tab.CR PO ONE (11:26)
[2023-01-17 11:42] LABS: BASOPHILS ABSOLUTE AUTO 0.04 K/uL (0.00-0.10); BASOPHILS PERCENT AUTO 0.3 % (0.1-1.3); EOSINOPHILS ABSOLUTE AUTO 0.07 K/uL (0.00-0.40); EOSINOPHILS PERCENT AUTO 0.5 % (0.0-5.4); HEMATOCRIT 42.4 % (34.3-46.0); HEMOGLOBIN 13.6 g/dL (11.2-15.5); IMMATURE GRAN ABSOLUTE AUTO 0.08 K/uL (0.00-0.23); IMMATURE GRAN PERCENT AUTO 0.5 % (0.0-0.7); LYMPHOCYTES ABSOLUTE AUTO 1.34 K/uL (0.8-3.3); LYMPHOCYTES PERCENT AUTO 8.8 % (11.4-47.7); MEAN CORPUSCULAR HEMOGLOBIN 29.1 pg (31.6-35.5); MEAN CORPUSCULAR HGB CONC 32.1 g/dL (31.6-35.5); MEAN CORPUSCULAR VOLUME 90.8 fL (81.4-99.0); MONOCYTES ABSOLUTE AUTO 0.67 K/uL (0.20-0.90); MONOCYTES PERCENT AUTO 4.4 % (3.3-12.6); NEUTROPHILS ABSOLUTE AUTO 13.09 K/uL (1.0-7.6); NEUTROPHILS PERCENT AUTO 85.5 % (40.0-78.1); PLATELET COUNT,PLT 273 K/uL (130-375); RED BLOOD CELL COUNT 4.67 M/uL (3.77-5.24); WHITE BLOOD CELL COUNT,WBC 15.3 K/uL (3.2-11.0)
[2023-01-17 11:58] LABS: APPEARANCE,URINE CLOUDY (CLEAR); BILIRUBIN,URINE NEGATIVE (NEGATIVE); GLUCOSE,URINE NEGATIVE (NEGATIVE); KETONES,URINE TRACE mg/dL (NEGATIVE); LEUKOCYTE ESTERASE,URINE NEGATIVE (NEGATIVE); NITRITE,URINE NEGATIVE (NEGATIVE); OCCULT BLOOD,URINE LARGE (NEGATIVE); PROTEIN,URINE 30 mg/dL (NEGATIVE); UROBILINOGEN,URINE 0.2 EU/dL (0.2-1.0)
[2023-01-17 12:02] LABS: AMORPHOUS SEDIMENT,URINE NOT SEEN; BACTERIA,URINE FEW; COLOR,URINE OTHER (YELLOW); EPITHELIAL CELLS,URINE MANY; MUCUS,URINE NOT SEEN; RBC,URINE >100 (0-5); WBC,URINE 0-5 (0-5)
[2023-01-17 12:03] LABS: A/G RATIO 0.8 (1.2-2.2); ALANINE AMINOTRANSFERASE,ALT 12 U/L (12-78); ALBUMIN 3.3 g/dL (3.4-5.0); ALKALINE PHOSPHATASE 92 U/L (46-116); ANION GAP 9.4 mmol/L (5.0-14.0); ASPARTATE AMNIOTRANSFERASE,AST 11 U/L (15-37); BILIRUBIN TOTAL 0.4 mg/dL (0.2-1.0); BLOOD UREA NITROGEN,BUN 6 mg/dL (7-18); CALCIUM 8.4 mg/dL (8.5-10.1); CARBON DIOXIDE,CO2 28 mmol/L (21-32); CHLORIDE,CL 104 mmol/L (100-108); CREATININE 0.7 mg/dL (0.6-1.0); EST CRCL DRUG DOSING (CG) 95.44 mL/min; ESTIMATED GFR 118 mL/min (>60); GLUCOSE RANDOM 102 mg/dL (74-106); PROTEIN TOTAL,TP 7.7 g/dL (6.4-8.2); SODIUM,NA 141 mmol/L (140-148)
== END 2023-01-17 12:23 | disposition home or self-care (01) ==
LOC: JP.ED 10:36
DX: A05.9 Bacterial foodborne intoxication, unspecified (principal); R12 Heartburn; E66.01 Morbid (severe) obesity due to excess calories; K21.9 Gastro-esophageal reflux disease without esophagitis; Z68.44 Body mass index [BMI] 60.0-69.9, adult; Z86.16 Personal history of COVID-19; Z91.018 Allergy to other foods; Z79.899 Other long term (current) drug therapy
CPT/HCPCS: 36415; 80053; 81001; 81025; 83690; 85025; 99283; 99284; A9270-GY; Q0162

== ENCOUNTER 2023-04-29 22:45 | Emergency (ER) | payer MEDICAID ==
[2023-04-29 23:06] VITALS: BP 157/91; PULSE 97
[2023-04-30] MEDS ORDERED: Albuterol/Ipratropium 3.0-0.5 MG/3 ML Neb Soln NEB ONE (00:04)
[2023-04-30] MEDS ORDERED: methylPREDNISolone Sodium Succinate 40 MG/1 ML SDV IM ONE (00:04)
== END 2023-04-30 00:05 | disposition left against medical advice (07) ==
LOC: JP.ED 22:45
DX: J06.9 Acute upper respiratory infection, unspecified (principal); Z86.16 Personal history of COVID-19; Z79.899 Other long term (current) drug therapy; Z91.018 Allergy to other foods
CPT/HCPCS: 99284

== ENCOUNTER 2023-10-26 22:42 | Emergency (ER) | payer MEDICAID ==
[2023-10-26 23:23] VITALS: BP 136/76; PULSE 86
[2023-10-27] MEDS: Ketorolac 30 MG/ML SDV IM ONE (00:13)
[2023-10-27] MEDS: Ondansetron 4 MG Tab.DIS PO ONE (00:13)
== END 2023-10-27 01:41 | disposition home or self-care (01) ==
LOC: JP.ED 22:42
DX: N20.0 Calculus of kidney (principal); E66.9 Obesity, unspecified; Z86.16 Personal history of COVID-19; Z79.899 Other long term (current) drug therapy; Z91.018 Allergy to other foods; Z68.44 Body mass index [BMI] 60.0-69.9, adult
CPT/HCPCS: 74176; 96372; 99284; J1885; Q0162; 99283

== ENCOUNTER 2023-11-20 02:30 | Emergency (ER) | payer MEDICAID ==
[2023-11-20 02:50] VITALS: BP 142/88; PULSE 98
== END 2023-11-20 03:20 | disposition home or self-care (01) ==
LOC: JP.ED 02:30
DX: G56.22 Lesion of ulnar nerve, left upper limb (principal); E66.9 Obesity, unspecified; Z86.16 Personal history of COVID-19; Z79.899 Other long term (current) drug therapy; Z91.018 Allergy to other foods
CPT/HCPCS: 99283

== ENCOUNTER 2024-01-28 18:56 | Emergency (ER) | payer MEDICAID ==
[2024-01-28 19:31] VITALS: BP 139/87; PULSE 89
== END 2024-01-28 21:26 | disposition home or self-care (01) ==
LOC: JP.ED 18:56
DX: M17.12 Unilateral primary osteoarthritis, left knee (principal); E66.9 Obesity, unspecified; Z86.16 Personal history of COVID-19; Z79.899 Other long term (current) drug therapy; Z91.018 Allergy to other foods; Z91.041 Radiographic dye allergy status; Z68.44 Body mass index [BMI] 60.0-69.9, adult
CPT/HCPCS: 73562-26-LT; 73562-LT; 99283

== ENCOUNTER 2024-05-12 19:15 | Emergency (ER) | payer MEDICAID ==
[2024-05-12 19:22] VITALS: BP 166/83; PULSE 88
== END 2024-05-12 20:56 | disposition home or self-care (01) ==
LOC: JP.ED 19:15
DX: J06.9 Acute upper respiratory infection, unspecified (principal); B97.89 Other viral agents as the cause of diseases classified elsewhere; E66.9 Obesity, unspecified; Z86.16 Personal history of COVID-19; Z79.899 Other long term (current) drug therapy; Z91.018 Allergy to other foods; Z91.041 Radiographic dye allergy status; Z68.44 Body mass index [BMI] 60.0-69.9, adult
CPT/HCPCS: 87428-QW; 87651; 99283

== ENCOUNTER 2024-11-25 01:14 | Emergency (ER) | payer MEDICAID ==
[2024-11-25 01:29] VITALS: BP 133/80; PULSE 72
== END 2024-11-25 01:55 | disposition home or self-care (01) ==
LOC: JP.ED 01:14
DX: H66.91 Otitis media, unspecified, right ear (principal); E66.9 Obesity, unspecified; Z79.899 Other long term (current) drug therapy; Z88.8 Allergy status to other drugs, medicaments and biological substances; Z91.041 Radiographic dye allergy status; Z91.018 Allergy to other foods; Z87.891 Personal history of nicotine dependence; Z68.44 Body mass index [BMI] 60.0-69.9, adult
CPT/HCPCS: 99282

== ENCOUNTER 2025-01-23 02:43 | Emergency (ER) | payer MEDICAID ==
[2025-01-23 02:58] VITALS: BP 143/82; PULSE 83
[2025-01-23 03:22] LABS: APPEARANCE,URINE CLOUDY (CLEAR); GLUCOSE,URINE NEGATIVE (NEGATIVE); OCCULT BLOOD,URINE LARGE (NEGATIVE)
[2025-01-23 03:24] LABS: SQUAMOUS EPITHELIAL CELLS,UR FEW /HPF; UROTHELIAL CELLS,URINE NOT SEEN /HPF
[2025-01-23] MEDS ORDERED: Sodium Chloride 0.9% 10 ML Syringe FLUSH PRN (03:30)
[2025-01-23 03:45] LABS: BASOPHILS ABSOLUTE AUTO 0.03 K/uL (0.00-0.10); BASOPHILS PERCENT AUTO 0.2 % (0.1-1.3); EOSINOPHILS ABSOLUTE AUTO 0.09 K/uL (0.00-0.40); EOSINOPHILS PERCENT AUTO 0.6 % (0.0-5.4); IMMATURE GRAN ABSOLUTE AUTO 0.06 K/uL (0.00-0.23); IMMATURE GRAN PERCENT AUTO 0.4 % (0.0-0.7); LYMPHOCYTES ABSOLUTE AUTO 1.55 K/uL (0.8-3.3); LYMPHOCYTES PERCENT AUTO 10.8 % (11.4-47.7); MONOCYTES ABSOLUTE AUTO 0.62 K/uL (0.20-0.90); MONOCYTES PERCENT AUTO 4.3 % (3.3-12.6); NEUTROPHILS ABSOLUTE AUTO 12.00 K/uL (1.0-7.6); NEUTROPHILS PERCENT AUTO 83.7 % (40.0-78.1); PLATELET COUNT,PLT 250 K/uL (130-375); RED BLOOD CELL COUNT 4.29 M/uL (3.77-5.24); WHITE BLOOD CELL COUNT,WBC 14.4 K/uL (3.2-11.0)
[2025-01-23] MEDS: Ketorolac 30 MG/ML SDV IVPUSH ONE (03:45)
[2025-01-23 04:11] LABS: LACTIC ACID 1.2 mmol/L (0.4-2.0)
[2025-01-23 04:18] LABS: A/G RATIO 0.7 (1.2-2.2); ALANINE AMINOTRANSFERASE,ALT 23 U/L (12-78); ASPARTATE AMNIOTRANSFERASE,AST 15 U/L (15-37); BILIRUBIN TOTAL 0.2 mg/dL (0.2-1.0); BLOOD UREA NITROGEN,BUN 12 mg/dL (7-18); CARBON DIOXIDE,CO2 27 mmol/L (21-32); CHLORIDE,CL 105 mmol/L (100-108); CREATININE 0.9 mg/dL (0.6-1.0); ESTIMATED GFR 86 mL/min (>60); GLUCOSE RANDOM 114 mg/dL (74-106); POTASSIUM,K 4.0 mmol/L (3.6-5.2); PROTEIN TOTAL,TP 7.4 g/dL (6.4-8.2); SODIUM,NA 142 mmol/L (140-148)
== END 2025-01-23 06:26 | disposition home or self-care (01) ==
LOC: JP.ED 02:43
DX: N20.0 Calculus of kidney (principal); Z88.8 Allergy status to other drugs, medicaments and biological substances; Z91.018 Allergy to other foods; Z91.041 Radiographic dye allergy status; Z79.899 Other long term (current) drug therapy
CPT/HCPCS: 36415; 80053; 81001; 81025; 83605; 85025; 96365; 96375; 99284; A9270; J0696; J1885; J7030; J1171

== ENCOUNTER 2025-01-26 10:27 | Emergency (ER) | payer MEDICAID ==
[2025-01-26] MEDS ORDERED: Naloxone 0.4 MG/ML SDV IVPUSH PRN ×2 (11:27→14:17)
[2025-01-26 11:42] LABS: BASOPHILS ABSOLUTE AUTO 0.03 K/uL (0.00-0.10); BASOPHILS PERCENT AUTO 0.2 % (0.1-1.3); EOSINOPHILS ABSOLUTE AUTO 0.12 K/uL (0.00-0.40); EOSINOPHILS PERCENT AUTO 0.9 % (0.0-5.4); IMMATURE GRAN ABSOLUTE AUTO 0.07 K/uL (0.00-0.23); IMMATURE GRAN PERCENT AUTO 0.5 % (0.0-0.7); LYMPHOCYTES ABSOLUTE AUTO 0.97 K/uL (0.8-3.3); LYMPHOCYTES PERCENT AUTO 7.3 % (11.4-47.7); MONOCYTES ABSOLUTE AUTO 0.61 K/uL (0.20-0.90); MONOCYTES PERCENT AUTO 4.6 % (3.3-12.6); NEUTROPHILS ABSOLUTE AUTO 11.56 K/uL (1.0-7.6); NEUTROPHILS PERCENT AUTO 86.5 % (40.0-78.1); PLATELET COUNT,PLT 212 K/uL (130-375); RED BLOOD CELL COUNT 4.03 M/uL (3.77-5.24); WHITE BLOOD CELL COUNT,WBC 13.4 K/uL (3.2-11.0)
[2025-01-26 11:43] LABS: APPEARANCE,URINE CLEAR (CLEAR); GLUCOSE,URINE NEGATIVE (NEGATIVE); OCCULT BLOOD,URINE LARGE (NEGATIVE)
[2025-01-26] MEDS: Prochlorperazine 10 MG/2 ML SDV IVPUSH ONE (11:44)
[2025-01-26] MEDS: Ketorolac 30 MG/ML SDV IVPUSH ONE (11:44)
[2025-01-26 11:51] LABS: SQUAMOUS EPITHELIAL CELLS,UR MODERATE /HPF; UROTHELIAL CELLS,URINE NOT SEEN /HPF
[2025-01-26 12:11] LABS: A/G RATIO 0.7 (1.2-2.2); ALANINE AMINOTRANSFERASE,ALT 22 U/L (12-78); ASPARTATE AMNIOTRANSFERASE,AST 18 U/L (15-37); BILIRUBIN TOTAL 0.5 mg/dL (0.2-1.0); BLOOD UREA NITROGEN,BUN 10 mg/dL (7-18); CARBON DIOXIDE,CO2 28 mmol/L (21-32); CHLORIDE,CL 103 mmol/L (100-108); CREATININE 0.8 mg/dL (0.6-1.0); EST CRCL DRUG DOSING (CG) 78.37 mL/min; ESTIMATED GFR 99 mL/min (>60); GLUCOSE RANDOM 94 mg/dL (74-106); POTASSIUM,K 3.9 mmol/L (3.6-5.2); PROTEIN TOTAL,TP 7.4 g/dL (6.4-8.2); SODIUM,NA 140 mmol/L (140-148)
[2025-01-26 13:37] VITALS: BP 136/86; PULSE 89
== END 2025-01-26 14:36 | disposition home or self-care (01) ==
LOC: JP.ED 10:27
DX: N13.2 Hydronephrosis with renal and ureteral calculous obstruction (principal); E66.9 Obesity, unspecified; Z79.899 Other long term (current) drug therapy; Z91.018 Allergy to other foods; Z91.041 Radiographic dye allergy status; Z68.44 Body mass index [BMI] 60.0-69.9, adult
CPT/HCPCS: 36415; 74176; 80053; 81001; 81025; 83605; 85025; 86140; 96361; 96372; 96374; 96375; 99284; J0780; J1171; J1885; J7030